=== PATIENT | female | born 1965 | race Caucasian/White ===

== ENCOUNTER 2019-04-18 16:53 | Emergency (ER) | payer BC, OTHER ==
--- NOTE | 2019-04-18 17:48 | EDPHYS ---
Physician Documentation [facility] Name: Lisa Valentino Age: 53 yrs Sex: Female : 1965 Arrival Date: 04/18/2019 Time: 16:59 Bed 8 Private MD: Fer Monsivais R ED Physician Dylan Mcleod HPI: 04/18 17:33 This 53 yrs old Female presents to ER via Ambulatory with complaints of Arm jmm Pain. 17:33 The patient or guardian complains of pain. Onset: The symptoms/episode began/occurred jmm acutely, 2 day(s) ago. Modifying factors: The symptoms are alleviated by nothing. the symptoms are aggravated by movement. Associated signs and symptoms: Pertinent negatives:. This is a 53 year old female with a history of htn, that presents to the ED with complaints of left and right extremity pain described as burning. Patient states she fall from a standing position 2 days ago and has since had burning pain which initially began radiating from the neck to the left arm and now the neck to the right arm. Patient denies weakness. Denies chest pain. 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 - Social history:: Smoking status: Patient uses tobacco products, smokes two packs cigarettes per day. - Ebola Screening: : Patient denies travel to an Ebola-affected area in the 21 days before illness onset. ROS: 17:33 Constitutional: Negative for fever, chills, and weight loss, Neck: Negative for injury, jmm pain, and swelling, Cardiovascular: Negative for chest pain, palpitations, and edema, Respiratory: Negative for shortness of breath, cough, wheezing, and pleuritic chest pain. 17:33 MS/extremity: Positive for pain. 17:33 All other systems are negative. Exam: 17:33 Constitutional: This is a well developed, well nourished patient who is awake, alert, jmm and in no acute distress. Head/Face: atraumatic. Eyes: EOMI, no conjunctival erythema appreciated ENT: Moist Mucus Membranes Neck: Trachea midline, Supple Chest/axilla: Normal chest wall appearance and motion. Cardiovascular: Regular rate and rhythm. No edema appreciated Respiratory: Normal respirations, no respiratory distress appreciated Abdomen/GI: Non distended, soft Back: Normal ROM Skin: General appearance color normal 17:33 Neck: C-spine: appears grossly normal, no vertebral tenderness, no crepitus. 17:33 Musculoskeletal/extremity: compartments are soft, full radial pulse, bilaterally, DTR normal, full fabric cutter strength, NVI. Normal finger jerk bilaterally. Vital Signs: 17:07 BP 134 / 92; Pulse 98; Resp 18; Temp 97.7; Pulse Ox 98% on R/A; Weight 80.74 kg; Height aj1 5 ft. 1 in. (154.94 cm) (R); Pain 3/10; 17:07 Body Mass Index 33.63 (80.74 kg, 154.94 cm) aj1 MDM: 17:16 Patient medically screened. [facility] 17:40 Data reviewed: vital signs, nurses notes. Counseling: I had a detailed discussion with [facility] the patient and/or guardian regarding: the historical points, exam findings, and any diagnostic results supporting the discharge/admit diagnosis, the need for outpatient follow up, to return to the emergency department if symptoms worsen or persist or if there are any questions or concerns that arise at home. ED course: No midline cervical tenderness. Symptoms appear consistent with cervical radiculopathy. PE findings do not indicate concern for an acute impingement syndrome. Patient advised to follow up with neuro and otherwise advised to return to the ED if symptoms worsen. Patient understood and agrees with the plan of care. . Administered Medications: No medications were administered Disposition: 18:33 Co-signature as Attending Physician, Dylan Mcleod MD. rn Disposition: 04/18/19 17:41 Discharged to Home. Impression: Radiculopathy, cervical region. - Condition is Stable. - Discharge Instructions: Cervical Radiculopathy. - Prescriptions for Ultracet 37.5- 325 mg Oral Tablet - take 1 tablet by ORAL route every 6 hours - for up to 5 days; do not exceed 8 tablets per day.; 12 tablet. Zanaflex 4 mg Oral Tablet - take 1 tablet by ORAL route every 8 hours As needed; 20 tablet. Medrol (Nakul) 4 mg Oral Tablets, Dose Pack - take 1 tablet by ORAL route as directed - follow package instructions; 1 packet. - Family Work Release, Medication Reconciliation Form, Thank You Letter, Antibiotic Education, Prescription Opioid Use form. - Follow up: Michael Zimmerman MD; When: 2 - 3 days; Reason: Recheck today's complaints, Continuance of care, Re-evaluation by your physician. 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 Impression: Radiculopathy, cervical region. sg Condition is Stable. Forms are Medication Reconciliation Form, Thank You Letter, Antibiotic Education, Prescription Opioid Use. Follow up: Michael Zimmerman; When: 2 - 3 days; Reason: Recheck today's complaints, Continuance of care, Re-evaluation by your physician. bro
--- NOTE | 2019-04-18 17:48 | ER ---
Nurse's Notes [facility] Name: Lisa Valentino Age: 53 yrs Sex: Female : 1965 Arrival Date: 04/18/2019 Time: 16:59 Bed 8 Private MD: Fer Monsivais R Diagnosis: Radiculopathy, cervical region Presentation: 04/18 17:03 Presenting complaint: Patient states: "I have spinal problems, bulging disks in 8 aj1 different places in my back. Night before last I tripped and felt. The next day i woke up and my left arm was feeling tingly and numb, now its both of my arms. I don't know if I have a pinched nerve or what is going on. The more I use my hands and arms the more it hurts" Patient ambulated to triage with a steady gait, speech is clear, face is symmetrical. Transition of care: patient was not received from another setting of care. Onset of symptoms was March 2019. Risk Assessment: Do you want to hurt yourself or someone else? Patient reports no desire to harm self or others. Initial Sepsis Screen: Does the patient meet any 2 criteria? No. Patient's initial sepsis screen is negative. Does the patient have a suspected source of infection? No. Patient's initial sepsis screen is negative. Care prior to arrival: None. 17:03 Method Of Arrival: Ambulatory aj1 17:03 Acuity: [place] 3 aj1 Triage Assessment: 17:07 General: Appears in no apparent distress. uncomfortable, Behavior is calm, cooperative, aj1 appropriate for age. Pain: Pain currently is 3 out of 10 on a pain scale. at worst was 9 out of 10 on a pain scale. Neuro: Level of Consciousness is awake, alert, obeys commands. Cardiovascular: Patient's skin is warm and dry. Respiratory: Airway is patent Respiratory effort is even, unlabored, Respiratory pattern is regular, symmetrical. 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 - Social history:: Smoking status: Patient uses tobacco products, smokes two packs cigarettes per day. - Ebola Screening: : Patient denies travel to an Ebola-affected area in the 21 days before illness onset. Screenin:45 Abuse screen: Denies threats or abuse. Denies injuries from another. Nutritional sg screening: No deficits noted. Tuberculosis screening: No symptoms or risk factors identified. Fall Risk None identified. Assessment: 17:30 General: Appears in no apparent distress. well groomed, well developed, well nourished, sg Behavior is calm, cooperative, appropriate for age. Pain: Complains of pain in right arm. 17:30 Neuro: Reports numbness in right arm and left arm. 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 Cardiovascular: Denies chest pain, diaphoresis, fatigue, lightheadedness, nausea, palpitations, shortness of breath, syncope, vomiting, Capillary refill is brisk in bilateral fingers Patient's skin is warm and dry. Chest pain is denied. Respiratory: Airway is patent Respiratory effort is even, unlabored, Respiratory pattern is regular, symmetrical. GI: Abdomen is round. : No signs and/or symptoms were reported regarding the genitourinary system. EENT: No signs and/or symptoms were reported regarding the EENT system. Derm: Skin is pink, warm \\T\\ dry. Musculoskeletal: Circulation, motion, and sensation intact. Range of motion: intact in all extremities, Swelling absent. Vital Signs: 17:07 BP 134 / 92; Pulse 98; Resp 18; Temp 97.7; Pulse Ox 98% on R/A; Weight 80.74 kg; Height aj1 5 ft. 1 in. (154.94 cm) (R); Pain 3/10; 17:07 Body Mass Index 33.63 (80.74 kg, 154.94 cm) aj1 ED Course: 16:59 Patient arrived in ED. mr 17:00 Fer Monsivais MD is Private Physician. mr 17:04 Triage completed. [facility] 17:07 Arm band placed on Patient placed in an exam room. [facility] 17:16 Gavin Olea PA is PHCP. [facility] 17:16 Dylan Mcleod MD is Attending Physician. [facility] 17:30 Patient has correct armband on for positive identification. Bed in low position. Call sg light in reach. Side rails up X2. Pulse ox on. NIBP on. Head of bed elevated. 17:41 Michael Zimmerman MD is Referral Physician. [facility] 17:45 No provider procedures requiring assistance completed. Patient did not have IV access sg during this emergency room visit. Administered Medications: No medications were administered Outcome: 17:41 Discharge ordered by . [facility] 17:45 Discharged to home ambulatory, with family. 17:45 Condition: good 17:45 Discharge instructions given to patient, Instructed on discharge instructions, follow up and referral plans. safety practices, Demonstrated understanding of instructions, follow-up care, medications, Prescriptions given X 3. 17:50 Patient left the ED. Signatures: Radha Heath, RN RN aj Ben Bowser RN RN Gavin Olea PA PA jmm Rivera, Mary mr
[2019-04-18 18:38] VITALS: BP 134/92; TEMP 97.7; O2SAT 98
== END 2019-04-18 17:50 | disposition home or self-care (01) ==
LOC: ER 16:53
DX: M54.12 Radiculopathy, cervical region (principal); I10 Essential (primary) hypertension; K21.9 Gastro-esophageal reflux disease without esophagitis; E78.5 Hyperlipidemia, unspecified; F41.8 Other specified anxiety disorders; F17.210 Nicotine dependence, cigarettes, uncomplicated; Z88.3 Allergy status to other anti-infective agents; Z88.6 Allergy status to analgesic agent; Z91.040 Latex allergy status
CPT/HCPCS: 99283

== ENCOUNTER 2019-10-22 16:30 | Emergency (ER) | payer BC, OTHER ==
[2019-10-22 18:06] LABS: Absolute Lymphocytes (CBC) 2.5 K/uL (0.7-4.9); Basophils % 1.1 % (0-1.3); Hematocrit 43.5 % (36.0-45.0); Lymphocytes % 30.4 % (15.3-44.8); MPV 9.7 fL (7.6-11.3); RBC Red Blood Cell Count 5.15 M/uL (3.86-4.86)
--- NOTE | 2019-10-22 18:09 | RAD REPORT ---
EXAM DESCRIPTION: Richa Single View10/22/2019 5:50 pm CLINICAL HISTORY: Chest pain COMPARISON: 2014 FINDINGS: The lungs appear clear of acute infiltrate. The heart is normal size IMPRESSION: No acute abnormalities displayed
[2019-10-22 19:23] LABS: ALT/SGPT 40 U/L (12-78); Albumin 3.6 g/dL (3.4-5.0); Alkaline Phosphatase 104 U/L (45-117); BUN Blood Urea Nitrogen 12 mg/dL (7-18); Bicarbonate 29 mmol/L (21-32); Bilirubin Direct < 0.1 mg/dL (0-0.2); Bilirubin Total 0.4 mg/dL (0.2-1.0); Glucose Level 98 mg/dL (74-106); Protein, Total 7.9 g/dL (6.4-8.2); Sodium Level 139 mmol/L (136-145); Troponin (Emerg Dept Use Only) < 0.02 ng/mL (0.0-0.045)
[2019-10-22 19:32] LABS: AST/SGOT 26 U/L (15-37); Potassium 3.5 mmol/L (3.5-5.1)
--- NOTE | 2019-10-22 19:53 | ER ---
Nurse's Notes [facility] Name: Lisa Valentino Age: 54 yrs Sex: Female : 1965 Arrival Date: 10/22/2019 Time: 16:33 Bed 24 Private MD: Diagnosis: Other chest pain Presentation: 10/21 16:35 Acuity: [place] 3 aa5 16:35 Chief complaint: Patient states: cough, SOB, and chest pain that began 2-3 days ago. Pt aa5 also reports fever up to 101.0F. Coronavirus screen: Patient reports a cough. Patient reports shortness of breath or difficulty breathing. Patient reports a measured and/or subjective temperature greater than 100.4F. Patient denies travel on a cruise ship or to a country the [facility] currently lists as an affected area. Patient denies contact with known and/or suspected case of COVID-19. Ebola Screen: Patient negative for fever greater than or equal to 101.5 degrees Fahrenheit, and additional compatible Ebola Virus Disease symptoms. Initial Sepsis Screen: Does the patient meet any 2 criteria? HR > 90 bpm. Does the patient have a suspected source of infection? Yes: Other: cough. Risk Assessment: Do you want to hurt yourself or someone else? Patient reports no desire to harm self or others. 16:35 Method Of Arrival: Ambulatory aa5 17:43 Onset of symptoms was October 19, 2019. ll1 Triage Assessment: 17:36 General: Appears in no apparent distress. Behavior is calm, cooperative. Pain: ll1 Complains of pain in chest Quality of pain is described as pressure, Pain began 2-3 days ago. Is continuous. Neuro: No deficits noted. Cardiovascular: Heart tones S1 S2 Capillary refill < 3 seconds Clubbing of nail beds is absent JVD is absent Pulses are all present. Chest pain is described as mild, quality is pressure, is located in substernal area began 3 days ago. Respiratory: Reports cough that is non-productive, Airway is patent Trachea midline Respiratory effort is even, unlabored, Respiratory pattern is regular, symmetrical, Breath sounds are clear bilaterally. the patient has mild shortness of breath. GI: No deficits noted. 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 - Social history:: Smoking status: Patient reports the use of cigarette tobacco products, smokes one pack cigarettes per day. - Family history:: not pertinent, No immediate family members are acutely ill. Screenin:35 Abuse screen: Denies threats or abuse. Nutritional screening: No deficits noted. ll1 Tuberculosis screening: No symptoms or risk factors identified. Fall Risk IV access (20 points). Total Reinoso Fall Scale indicates No Risk (0-24 pts). Assessment: 17:41 General: Appears in no apparent distress. Behavior is calm, cooperative. Pain: ll1 Complains of pain in chest Pain does not radiate. Quality of pain is described as pressure, Pain began 2-3 days ago. Is continuous. Neuro: No deficits noted. Cardiovascular: Reports chest pain, Heart tones S1 S2 Capillary refill < 3 seconds Clubbing of nail beds is absent JVD is absent Patient's skin is warm and dry. Rhythm is sinus tachycardia. Respiratory: Reports cough that is non-productive. Respiratory: Airway is patent Trachea midline Respiratory effort is even, unlabored, Respiratory pattern is regular, symmetrical, Breath sounds are clear bilaterally. the patient has mild shortness of breath. GI: No deficits noted. 18:37 Reassessment: No changes from previously documented assessment. Patient and/or family ll1 updated on plan of care and expected duration. Pain level reassessed. Patient is alert, oriented x 3, equal unlabored respirations, skin warm/dry/pink. 10/22 08:33 Reassessment: NDAINE [id number]. Vital Signs: 10/21 16:35 BP 132 / 81; Pulse 116; Resp 20 S; Temp 99.7(O); Pulse Ox 98% on R/A; Weight 90.72 kg aa5 (R); Height 5 ft. 1 in. (154.94 cm) (R); Pain 6/10; 17:40 BP 130 / 80; Pulse 101; Resp 19; Pulse Ox 97% on R/A; ll1 18:23 BP 130 / 90; Pulse 92; Resp 18; Pulse Ox 97% on R/A; ll1 18:51 Pulse 87; Resp 20; Pulse Ox 96% on R/A; ll1 19:23 BP 122 / 77; Pulse 79; Resp 19; Pulse Ox 97% on R/A; ll1 20:06 BP 122 / 77; Pulse 87; Resp 18; Pulse Ox 97% ; Pain 0/10; ll1 16:35 Body Mass Index 37.79 (90.72 kg, 154.94 cm) aa5 Vitals: 17:40 Cardiac Rhythm Assessment Sinus tach. ll1 18:51 Cardiac Rhythm Assessment Regular. ll1 19:23 Cardiac Rhythm Assessment Regular. ll1 ED Course: 15:20 Flu and/or RSV swab sent to lab. ll1 16:33 Patient arrived in ED. aa5 16:41 Arm band placed on. aa5 16:44 Triage completed. aa5 16:44 Dejah Watson, ABRIL is Primary Nurse. ll1 16:48 Volodymyr Haines DO is Attending Physician. ms3 17:15 Inserted saline lock: 20 gauge in left antecubital area, using aseptic technique. Blood ll1 collected. 17:36 Patient has correct armband on for positive identification. Bed in low position. Call ll1 light in reach. Side rails up X 1. equipment monitor phototypesetting on. Pulse ox on. NIBP on. 17:43 No provider procedures requiring assistance completed. Patient maintains SpO2 ll1 saturation greater than 95% on room air. 17:50 XRAY Chest (1 view) In Process Unspecified. EDMS 18:47 Lab(s) recollected, by me, sent to lab. ll1 19:51 Attending Physician role handed off by Volodymyr Haines DO tw4 19:51 Wong Gonzalez MD is Attending Physician. tw4 20:08 IV discontinued, intact, bleeding controlled, No redness/swelling at site. Pressure ll1 dressing applied. Administered Medications: No medications were administered Outcome: 19:52 Discharge ordered by . tw4 20:08 Discharged to home ambulatory. ll1 20:08 Condition: good 20:08 Discharge instructions given to patient, Instructed on discharge instructions, follow up and referral plans. Demonstrated understanding of instructions, follow-up care. 20:08 Patient left the ED. ll1 Addendum: 10/24/2019 20:00 Addendum: Other Pt notified of negative COVID-19 swab results. Pt advised to continue d m5 to monitor symptoms, to remain in isolation until fever free for 72 hours and to return if symptoms worsen. Signatures: Dispatcher [employer] Pamela Salazar RN RN dm5 Pretty Damon RN RN aa5 Kristin Ramsey RN RN ss Wong Gonzalez MD MD tw4 Dejah Watson RN RN ll1 Volodymyr Haines DO DO ms3
--- NOTE | 2019-10-22 19:53 | EDPHYS ---
Physician Documentation [facility] Name: Lisa Valentino Age: 54 yrs Sex: Female : 1965 Arrival Date: 10/22/2019 Time: 16:33 Bed 24 Private MD: ED Physician Wong Gonzalez HPI: 10/21 17:20 This 54 yrs old Female presents to ER via Ambulatory with complaints of Chest ms3 Pain, Cough, Fever. 17:20 The patient or guardian reports chest pain that is located primarily in the substernal ms3 area. Onset: gradually. The pain does not radiate. Associated signs and symptoms: The patient has no apparent associated signs or symptoms, Pertinent negatives: abdominal pain, nausea. The chest pain is described as a pressure. Duration: The patient or guardian reports a single episode. Modifying factors: The symptoms are alleviated by nothing. the symptoms are aggravated by nothing. Severity of pain: in the emergency department the pain is unchanged. 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 - Social history:: Smoking status: Patient reports the use of cigarette tobacco products, smokes one pack cigarettes per day. - Family history:: not pertinent, No immediate family members are acutely ill. ROS: 17:20 Constitutional: Negative for fever, and chills. Eyes: Negative for injury, pain, ms3 redness, and discharge, Neck: Negative for injury, pain, and swelling. 17:20 Constitutional: Positive for fever. 17:20 Respiratory: Positive for cough, shortness of breath. 17:20 All other systems are negative. Exam: 17:20 Constitutional: This is a well developed, well nourished patient who is awake, alert, ms3 and in no acute distress. Head/Face: Normocephalic, atraumatic. Chest/axilla: Normal chest wall appearance and motion. Nontender with no deformity. Cardiovascular: Regular rate and rhythm with a normal S1 and S2. No gallops, murmurs, or rubs. Normal PMI, no JVD. No pulse deficits. Respiratory: Lungs have equal breath sounds bilaterally, clear to auscultation and percussion. No rales, rhonchi or wheezes noted. No increased work of breathing, no retractions or nasal flaring. Abdomen/GI: Soft, non-tender, with normal bowel sounds. No distension or tympany. No guarding or rebound. No evidence of tenderness throughout. Skin: Warm, dry with normal turgor. Normal color with no rashes, no lesions, and no evidence of cellulitis. MS/ Extremity: Pulses equal, no cyanosis. Neurovascular intact. Full, normal range of motion. Neuro: Awake and alert, GCS 15, oriented to person, place, time, and situation. Cranial nerves II-XII grossly intact. Motor strength 5/5 in all extremities. Sensory grossly intact. Cerebellar exam normal. Normal gait. 18:29 ECG was reviewed by the Attending Physician. ms3 Vital Signs: 16:35 BP 132 / 81; Pulse 116; Resp 20 S; Temp 99.7(O); Pulse Ox 98% on R/A; Weight 90.72 kg aa5 (R); Height 5 ft. 1 in. (154.94 cm) (R); Pain 6/10; 17:40 BP 130 / 80; Pulse 101; Resp 19; Pulse Ox 97% on R/A; ll1 18:23 BP 130 / 90; Pulse 92; Resp 18; Pulse Ox 97% on R/A; ll1 18:51 Pulse 87; Resp 20; Pulse Ox 96% on R/A; ll1 19:23 BP 122 / 77; Pulse 79; Resp 19; Pulse Ox 97% on R/A; ll1 20:06 BP 122 / 77; Pulse 87; Resp 18; Pulse Ox 97% ; Pain 0/10; ll1 16:35 Body Mass Index 37.79 (90.72 kg, 154.94 cm) aa5 MDM: 16:48 Patient medically screened. ms3 18:30 Differential diagnosis: abnormal EKG, acute myocardial infarction, gastroesophageal ms3 reflux disease (GERD), pneumonia, COVID. 18:32 Data interpreted: Pulse oximetry: Interpretation: normal. Test interpretation: by ED ms3 physician or midlevel provider: ECG, plain radiologic studies. Counseling: I had a detailed discussion with the patient and/or guardian regarding: the historical points, exam findings, and any diagnostic results supporting the discharge/admit diagnosis, the presence of at least one elevated blood pressure reading (>120/80) during this emergency department visit, lab results, radiology results. 19:07 Data reviewed: vital signs, nurses notes, lab test result(s), CBC. Transition of care: ms3 After a detail discussion of the patient's case, care is transferred to Wong Gonzalez MD. 10/21 17:07 Order name: Basic Metabolic Panel; Complete Time: 19:46 ms3 10/21 17:07 Order name: CBC with Diff; Complete Time: 18:13 ms3 10/21 17:07 Order name: LFT's; Complete Time: 19:46 ms3 10/21 17:07 Order name: Troponin (emerg Dept Use Only); Complete Time: 19:46 ms3 10/21 17:07 Order name: Flu; Complete Time: 18:13 ms3 10/21 17:51 Order name: COVID-19; Complete Time: 19:46 ms3 10/21 17:07 Order name: XRAY Chest (1 view); Complete Time: 18:13 ms3 10/21 17:07 Order name: EKG; Complete Time: 17:08 ms3 10/21 17:07 Order name: Cardiac monitoring; Complete Time: 17:44 ms3 10/21 17:07 Order name: EKG - Nurse/Tech; Complete Time: 18:23 ms3 10/21 17:07 Order name: IV Saline Lock; Complete Time: 17:17 ms3 10/21 17:07 Order name: Labs collected and sent; Complete Time: 17:17 ms3 10/21 17:07 Order name: O2 Per Protocol; Complete Time: 17:17 ms3 10/21 17:07 Order name: O2 Sat Monitoring; Complete Time: 17:17 ms3 EC:20 Rate is 97 beats/min. Rhythm is regular. QRS [place] is Normal. IN interval is normal. QRS ms3 interval is normal. QT interval is normal. Clinical impression: NSR w/ Non-specific ST/T Changes. Administered Medications: No medications were administered Disposition: 10/22/19 19:52 Discharged to Home. Impression: Other chest pain. - Condition is Stable. - Discharge Instructions: Nonspecific Chest Pain. - Medication Reconciliation Form, Thank You Letter, Antibiotic Education, Prescription Opioid Use form. - Follow up: Private Physician; When: Upon discharge from the Emergency Department; Reason: Recheck today's complaints, Continuance of care, Re-evaluation by your physician. - Problem is new. - Symptoms have improved. Signatures: Dispatcher [employer] EDMS Gavin Olea PA PA jmm Calderon, Audri, RN RN aa5 Wong Gonzalez MD MD tw4 Dejah Watson RN RN ll1 Volodymyr Haines, DO ms3 Corrections: (The following items were deleted from the chart) 18:30 18:27 ECG was reviewed by the Attending Physician. ms3 ms3 18:30 18:27 Rate is 97 beats/min. Rhythm is regular. QRS [place] is Normal. IN interval is ms3 normal. QRS interval is normal. QT interval is normal. ms3 20:08 19:52 10/22/2019 19:52 Discharged to Home. Impression: Other chest pain. Condition is ll1 Stable. Forms are Medication Reconciliation Form, Thank You Letter, Antibiotic Education, Prescription Opioid Use. Follow up: Private Physician; When: Upon discharge from the Emergency Department; Reason: Recheck today's complaints, Continuance of care, Re-evaluation by your physician. Problem is new. Symptoms have improved. tw4
[2019-10-22 20:20] VITALS: TEMP 99.7
[2019-10-22 20:35] VITALS: BP 122/77; O2SAT 97
--- NOTE | 2019-10-23 11:02 | EKG ---
Test Date: 2019-10-22 Test Time: 18:02:18 Mushroom Picker: ELVIS MEASUREMENT RESULTS: Intervals: Rate: 97 HI: 150 QRSD: 86 QT: 360 QTc: 457 Viola: P: 13 HI: 150 QRS: 52 T: 11 INTERPRETIVE STATEMENTS: Normal sinus rhythm T wave abnormality, consider inferior ischemia Abnormal ECG No previous ECG available for comparison Electronically Signed On 10-23-19 11:01:05 CDT by Lon Maldonado
== END 2019-10-22 20:08 | disposition home or self-care (01) ==
LOC: ER 16:30
DX: R07.89 Other chest pain (principal); Z03.818 Encounter for observation for suspected exposure to other biological agents ruled out; R05 Cough; I10 Essential (primary) hypertension; F17.210 Nicotine dependence, cigarettes, uncomplicated; Z88.1 Allergy status to other antibiotic agents; Z88.8 Allergy status to other drugs, medicaments and biological substances; Z91.012 Allergy to eggs; Z91.040 Latex allergy status
CPT/HCPCS: 93005; 85025; 80048; 36415; 80076; 84484; 87804 ×2; 71045; 99285; U0001

== ENCOUNTER 2020-06-27 16:20 | Emergency (ER) | payer BC ==
--- NOTE | 2020-06-27 18:49 | RAD REPORT ---
EXAM DESCRIPTION: CT - CTHCSPWOC - 06/27/2020 6:00 pm CLINICAL HISTORY: Trauma, head and neck injury. fall;Pain COMPARISON: No comparisons TECHNIQUE: Axial 5 mm thick images of the head were obtained. Axial 2 mm thick images of the cervical spine were obtained with sagittal and coronal reconstruction images generated and reviewed. All CT scans are performed using dose optimization technique as appropriate and may include automated exposure control or mA/KV adjustment according to patient size. FINDINGS: CT HEAD WITHOUT CONTRAST: No acute hemorrhage, hydrocephalus or extra-axial collection is identified.No areas of brain edema or midline shift. The paranasal sinuses and mastoids are clear.The calvarium is intact. CT CERVICAL SPINE WITHOUT CONTRAST: No fracture or subluxation.Multilevel mild spondylosis of the cervical spine is present involving the mid and lower levels.No prevertebral soft tissues swelling is identified. A few mildly prominent fabi ateral nodes are seen throughout the neck. IMPRESSION: No acute intracranial or cervical spine findings.
[2020-06-27] MEDS ORDERED: HYDROCODONE/APAP 7.5/325 MG TAB ONE (19:32)
--- NOTE | 2020-06-27 20:27 | RAD REPORT ---
EXAM DESCRIPTION: CT - Thoracic Spine W/o Cont - 06/27/2020 7:52 pm CLINICAL HISTORY: Radiculopathy. fall;Pain COMPARISON: Head C Spine Mpr Wo Con dated 06/27/2020; CTANGIO CHEST FOR PE dated 06/17/2014 TECHNIQUE: Axial CT imaging through the thoracic spine was performed with coronal and sagittal re-fo rmatted images. All CT scans are performed using dose optimization technique as appropriate and may include automated exposure control or mA/KV adjustment according to patient size. FINDINGS: Vertebral body heights and disc spaces are maintained. A compression fracture is not prese nt. Mild spondylosis midthoracic spine with disc thinning. Thoracic spine alignment is within normal limits. No paraspinal masses or hematoma. Calcified nodule is seen in the right lung with calcified hilar lymph nodes. This may indicate prior granulomatous infection. IMPRESSION: No acute thoracic spine abnormality.
--- NOTE | 2020-06-27 20:29 | RAD REPORT ---
EXAM DESCRIPTION: RAD - Ankle Right 3 View - 06/27/2020 7:28 pm CLINICAL HISTORY: PAIN COMPARISON: No comparisons FINDINGS: Mild soft tissue swelling is seen adjacent to the lateral malleolus. No acute fracture or dislocation. Small posterior and plantar calcaneal spurs.
--- NOTE | 2020-06-27 20:45 | ER ---
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 My head is hurting, my neck is hurting, back is hurting, R ankle hurting. Denies LOC. Denies N/V. Not on blood thinners. Coronavirus screen: Client denies travel out of the [place] in the last 14 days. At this time, the client does not indicate any symptoms associated with coronavirus-19. Ebola Screen: Patient negative for fever greater than or equal to 101.5 degrees Fahrenheit, and additional compatible Ebola Virus Disease symptoms Patient denies exposure to infectious person. Patient denies travel to an Ebola-affected area in the 21 days before illness onset. No symptoms or risks identified at this time. Initial Sepsis Screen: Does the patient meet any 2 criteria? No. Patient's initial sepsis screen is negative. Does the patient have a suspected source of infection? No. Patient's initial sepsis screen is negative. Risk Assessment: Do you want to hurt yourself or someone else? Patient reports no desire to harm self or others. Onset of symptoms was June 27, 2020. 16:53 Method Of Arrival: Ambulatory ca1 16:53 Acuity: [place] 4 ca1 19:17 Care prior to arrival: None. Mechanism of Injury: Fall Inversion table. Trauma event ph details: Injury occurred in the [facility], Injury occurred: in a public building. 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 - Social history:: Smoking status: Patient reports the use of cigarette tobacco products, smokes two packs cigarettes per day. - Immunization history: Last tetanus immunization: unknown. Screenin:17 Abuse screen: Denies threats or abuse. Denies injuries from another. Nutritional ph screening: No deficits noted. Tuberculosis screening: No symptoms or risk factors identified. Fall Risk None identified. Primary Survey: 19:15 NO uncontrolled hemorrhage observed. A: A: The patient is alert. Breathing/Chest: ph Respiratory pattern: regular, Respiratory effort: spontaneous, unlabored. Circulation: Skin color: pink, Skin temperature: warm, dry. Disability Alert. Exposure/Environment: A warming method has been applied: A warm blanket has been provided to the patient. 20:00 Reassessment Airway Airway Patent Breathing/Chest Respiratory pattern Regular wh Respiratory effort Spontaneous Unlabored Disability Alert. Secondary Survey: 19:16 HEENT: Head Other swelling to top of head. Musculoskeletal: Circulation, motion, and ph sensation intact. Injury Description: Abrasion sustained to right ankle. Assessment: 19:14 General: Appears in no apparent distress. uncomfortable, well groomed, Behavior is ph calm, cooperative, appropriate for age. Pain: Complains of pain in head, neck, and R ankle. Neuro: Level of Consciousness is awake, alert, obeys commands, Oriented to person, place, time, situation, Reports dizziness, headache. Cardiovascular: Capillary refill < 3 seconds in bilateral fingers Patient's skin is warm and dry. Respiratory: Airway is patent Respiratory effort is even, unlabored, Respiratory pattern is regular, symmetrical. GI: No signs and/or symptoms were reported involving the gastrointestinal system. Derm: Skin is healthy with good turgor, Skin is pink, warm \T\ dry. Musculoskeletal: Circulation, motion, and sensation intact. Range of motion: intact in all extremities. Injury Description: Abrasion sustained to right ankle. 19:15 Reassessment: Patient appears in no apparent distress at this time. Patient and/or wh family updated on plan of care and expected duration. Pain level reassessed. Patient is alert, oriented x 3, equal unlabored respirations, skin warm/dry/pink. 20:00 Reassessment: Patient appears in no apparent distress at this time. Patient and/or wh family updated on plan of care and expected duration. Pain level reassessed. Patient is alert, oriented x 3, equal unlabored respirations, skin warm/dry/pink. 21:00 Reassessment: Patient appears in no apparent distress at this time. Patient and/or wh family updated on plan of care and expected duration. Pain level reassessed. Patient is alert, oriented x 3, equal unlabored respirations, skin warm/dry/pink. Patient states feeling better. Patient states symptoms have improved. Vital Signs: 16:53 BP 128 / 90; Pulse 89; Resp 15 S; Temp 97.7(TE); Pulse Ox 100% on R/A; Weight 96.16 kg ca1 (R); Height 5 ft. 1 in. (154.94 cm) (R); Pain 9/10; 19:30 BP 112 / 74; Pulse 74; Resp 18; Pulse Ox 100% on R/A; wh 21:00 BP 118 / 65; Pulse 71; Resp 18; Pulse Ox 98% on R/A; wh 16:53 Body Mass Index 40.06 (96.16 kg, 154.94 cm) ca1 Clayton Coma Score: 18:40 Eye Response: spontaneous(4). Verbal Response: oriented(5). Motor Response: obeys cp commands(6). Total: 15. 19:16 Eye Response: spontaneous(4). Verbal Response: oriented(5). Motor Response: obeys ph commands(6). Total: 15. Trauma Score (Adult): 19:16 Eye Response: spontaneous(1); Verbal Response: oriented(1); Motor Response: obeys ph commands(2); Systolic BP: > 89 mm Hg(4); Respiratory Rate: 10 to 29 per min(4); Clayton Score: 15; Trauma Score: 12 ED Course: 16:22 Patient arrived in ED. as 16:59 Triage completed. ca1 17:00 Arm band placed on. C-collar applied. ca1 18:06 CT Head C Spine In Process Unspecified. EDMS 18:33 Ziggy Dickinson PA is PHCP. cp 18:33 Dylan Mcleod MD is Attending Physician. cp 19:12 Conrad Kuo is Primary Nurse. wh 19:15 Patient maintains SpO2 saturation greater than 95% on room air. Thermoregulation: warm wh blanket given to patient. 19:17 Patient has correct armband on for positive identification. Bed in low position. Call ph light in reach. Side rails up X 1. Door closed. Noise minimized. 19:28 XRAY Ankle RIGHT 3 view In Process Unspecified. EDMS 19:52 CT Thoracic Spine Wo Cont In Process Unspecified. EDMS 21:13 No provider procedures requiring assistance completed. Patient did not have IV access during this emergency room visit. 21:14 Applied air cast splint in the right foot. oe Administered Medications: 19:23 Drug: Hydrocodone-Acetaminophen (7.5 mg-325 mg) 1 tabs {Note: RASS 0.} Route: PO; 20:44 Follow up: Response: No adverse reaction; Pain is decreased; RASS: Alert and Calm (0) 20:57 Drug: Flexeril 10 mg Route: PO; 21:09 Follow up: Response: No adverse reaction 20:58 Drug: TORadol 60 mg Route: IM; Site: right gluteus; 21:09 Follow up: Response: No adverse reaction; Pain is decreased Intake: 21:15 PO: 120ml (Water); Total: 120ml. Outcome: 20:44 Discharge ordered by MD. 21:14 Discharged to home ambulatory, with family. 21:14 Condition: stable 21:14 Discharge instructions given to patient, family, Instructed on discharge instructions, follow up and referral plans. no drinking with medication, no driving heavy equipment, medication usage, POC Demonstrated understanding of instructions, follow-up care, medications, splint care, POC Prescriptions given X 3. 21:16 Patient's length of stay was extended due to staffing issues within the emergency department. 21:18 Patient left the ED. Signatures: Dispatcher [employer] EDMS Annelise Ambrocio Patricia, RN RN ph Teena, Ziggy, PA PA Tera Guthrie Winsy Enma Mclaughlin RN RN ca1
--- NOTE | 2020-06-27 20:45 | EDPHYS ---
Physician Documentation [facility] Name: Lisa Valentino Age: 54 yrs Sex: Female : 1965 Arrival Date: 06/27/2020 Time: 16:22 Bed 5 Private MD: ED Physician Dylan Mcleod HPI: 06/27 18:40 This 54 yrs old Female presents to ER via Ambulatory with complaints of Head cp Injury Without LOC-Adult, Dizziness, Neck and Upper Back Pain. 18:40 The patient or guardian reports pain. The complaints affect the top of head. Context of cp injury: resulted from a fall, while suspended from inversion table. Onset: The symptoms/episode began/occurred today. Associated signs and symptoms: Pertinent positives: headache, neck pain, back pain and right ankle pain. 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 - Social history:: Smoking status: Patient reports the use of cigarette tobacco products, smokes two packs cigarettes per day. - Immunization history: Last tetanus immunization: unknown. ROS: 18:45 Constitutional: Negative for body aches, chills, fever, poor PO intake. cp 18:45 Eyes: Negative for injury, pain, redness, and discharge. cp 18:45 ENT: Negative for ear pain, sore throat, difficulty swallowing, difficulty handling secretions. 18:45 Neck: Positive for pain with movement, pain at rest. 18:45 Cardiovascular: Negative for chest pain, palpitations. 18:45 Respiratory: Negative for cough, shortness of breath, wheezing. 18:45 Abdomen/GI: Negative for abdominal pain, nausea, vomiting, and diarrhea. 18:45 Back: Positive for pain at rest, pain with movement, of the left subscapular area and thoracic area. 18:45 MS/extremity: Positive for pain, swelling, tenderness, of the right ankle. 18:45 Neuro: Positive for headache, Negative for altered mental status, loss of consciousness, syncope, weakness. 18:45 All other systems are negative. Exam: 18:50 Head/Face: Normocephalic, atraumatic. cp 18:50 Constitutional: The patient appears in no acute distress, alert, awake, non-toxic, well developed, well nourished. 18:50 Eyes: Periorbital structures: appear normal, Pupils: equal, round, and reactive to light and accomodation, Extraocular movements: intact throughout, Lids and lashes: appear normal, bilaterally. 18:50 ENT: External ear(s): are unremarkable, Nose: is normal, Posterior pharynx: Airway: no evidence of obstruction, patent. 18:50 Neck: C-spine: C-collar placed in ED. 18:50 Chest/axilla: Inspection: normal, Palpation: is normal, no crepitus, no tenderness. 18:50 Cardiovascular: Rate: normal, Rhythm: regular. 18:50 Respiratory: the patient does not display signs of respiratory distress, Respirations: normal, no use of accessory muscles, no retractions, labored breathing, is not present, Breath sounds: are clear throughout, no decreased breath sounds. 18:50 Abdomen/GI: Exam negative for discomfort, distension, guarding, Inspection: abdomen appears normal. 18:50 Back: pain, that is moderate, of the left subscapular area and thoracic area, ROM is painful, with all movement, vertebral tenderness, is appreciated at T2 and T3. 18:50 Musculoskeletal/extremity: Joints: All joints are normal except the right ankle displays painful range of motion, swelling, tenderness. 18:50 Neuro: Orientation: to person, place \T\ time. Mentation: is normal, Motor: moves all fours, strength is normal, Sensation: no obvious gross deficits. Vital Signs: 16:53 BP 128 / 90; Pulse 89; Resp 15 S; Temp 97.7(TE); Pulse Ox 100% on R/A; Weight 96.16 kg ca1 (R); Height 5 ft. 1 in. (154.94 cm) (R); Pain 9/10; 19:30 BP 112 / 74; Pulse 74; Resp 18; Pulse Ox 100% on R/A; wh 21:00 BP 118 / 65; Pulse 71; Resp 18; Pulse Ox 98% on R/A; 16:53 Body Mass Index 40.06 (96.16 kg, 154.94 cm) ca1 Justyn Coma Score: 18:40 Eye Response: spontaneous(4). Verbal Response: oriented(5). Motor Response: obeys cp commands(6). Total: 15. 19:16 Eye Response: spontaneous(4). Verbal Response: oriented(5). Motor Response: obeys ph commands(6). Total: 15. Trauma Score (Adult): 19:16 Eye Response: spontaneous(1); Verbal Response: oriented(1); Motor Response: obeys ph commands(2); Systolic BP: > 89 mm Hg(4); Respiratory Rate: 10 to 29 per min(4); [place] Score: 15; Trauma Score: 12 MDM: 18:37 Patient medically screened. cp 20:00 Differential diagnosis: Contusion of Hematoma on Intracranial bleed- Concussion cp cerebral contusion, spinal fracture. 20:43 Data reviewed: vital signs, nurses notes, radiologic studies, CT scan, plain films, and cp as a result, I will discharge patient. 20:44 Counseling: I had a detailed discussion with the patient and/or guardian regarding: the cp historical points, exam findings, and any diagnostic results supporting the discharge/admit diagnosis, radiology results, to return to the emergency department if symptoms worsen or persist or if there are any questions or concerns that arise at home. 20:44 Response to treatment: the patient's symptoms have markedly improved after treatment, cp and as a result, I will discharge patient. 06/27 17:01 Order name: CT Head C Spine; Complete Time: 18:51 ca1 06/27 18:53 Order name: XRAY Ankle RIGHT 3 view; Complete Time: 20:37 cp 06/27 18:53 Order name: CT Thoracic Spine Wo Cont; Complete Time: 20:37 cp 06/27 20:38 Order name: Ankle Splint: Aircast; Complete Time: 21:09 cp Administered Medications: 19:23 Drug: Hydrocodone-Acetaminophen (7.5 mg-325 mg) 1 tabs {Note: RASS 0.} Route: PO; 20:44 Follow up: Response: No adverse reaction; Pain is decreased; RASS: Alert and Calm (0) 20:57 Drug: Flexeril 10 mg Route: PO; 21:09 Follow up: Response: No adverse reaction 20:58 Drug: TORadol 60 mg Route: IM; Site: right gluteus; 21:09 Follow up: Response: No adverse reaction; Pain is decreased Disposition: 06/28 09:34 Co-signature as Attending Physician, Dylan Mcleod MD. rn Disposition: 06/27/20 20:44 Discharged to Home. Impression: Cervicalgia - from fall, Dorsalgia - from fall, Headache - from fall, Sprain of ankle - right. - Condition is Stable. - Discharge Instructions: Ankle Sprain, Back Pain, Adult, General Headache Without Cause, Musculoskeletal Pain. - Prescriptions for Cyclobenzaprine 10 mg Oral Tablet - take 1 tablet by ORAL route every 8 hours As needed; 20 tablet. Diclofenac Sodium 75 mg Oral Tablet Sustained Release - take 1 tablet by ORAL route 2 times per day; 30 tablet. Tramadol 50 mg Oral Tablet - take 1 tablet by ORAL route every 8 hours as needed; 12 tablet. - Medication Reconciliation Form, Thank You Letter, Antibiotic Education, Prescription Opioid Use form. - Follow up: Private Physician; When: 2 - 3 days; Reason: Recheck today's complaints. - Problem is new. - Symptoms have improved. Signatures: Dispatcher [employer] EDDylan Knott MD MD rn Page, Corey, PA PA cp Habalo, Winsy Enma Mclaughlin RN RN ca1 Corrections: (The following items were deleted from the chart) 06/27 20:45 20:44 06/27/2020 20:44 Discharged to Home. Impression: Cervicalgia - from fall; cp Dorsalgia - from fall; Headache - from fall. Condition is Stable. Forms are Medication Reconciliation Form, Thank You Letter, Antibiotic Education, Prescription Opioid Use. Follow up: Private Physician; When: 2 - 3 days; Reason: Recheck today's complaints. Problem is new. Symptoms have improved. cp 21:18 20:45 06/27/2020 20:44 Discharged to Home. Impression: Cervicalgia - from fall; wh Dorsalgia - from fall; Headache - from fall; Sprain of ankle - right. Condition is Stable. Discharge Instructions: Back Pain, Adult, General Headache Without Cause, Musculoskeletal Pain, Ankle Sprain. Prescriptions for Cyclobenzaprine 10 mg Oral Tablet - take 1 tablet by ORAL route every 8 hours As needed; 20 tablet, Diclofenac Sodium 75 mg Oral Tablet Sustained Release - take 1 tablet by ORAL route 2 times per day; 30 tablet. and Forms are Medication Reconciliation Form, Thank You Letter, Antibiotic Education, Prescription Opioid Use. Follow up: Private Physician; When: 2 - 3 days; Reason: Recheck today's complaints. Problem is new. Symptoms have improved. cp
[2020-06-27] MEDS ORDERED: KETOROLAC 30 MG/ML INJ ONE (21:05)
[2020-06-27] MEDS ORDERED: CYCLOBENZAPRINE 10 MG TAB ONE (21:05)
[2020-07-01 14:41] VITALS: TEMP 97.7
[2020-07-01 14:43] VITALS: BP 118/65; O2SAT 98
== END 2020-06-27 21:18 | disposition home or self-care (01) ==
LOC: ER 16:20
DX: S93.401A Sprain of unspecified ligament of right ankle, initial encounter (principal); M54.2 Cervicalgia; M54.9 Dorsalgia, unspecified; W17.89XA Other fall from one level to another, initial encounter; Y93.9 Activity, unspecified; Y92.9 Unspecified place or not applicable; F17.210 Nicotine dependence, cigarettes, uncomplicated; I10 Essential (primary) hypertension; Z88.3 Allergy status to other anti-infective agents; Z88.5 Allergy status to narcotic agent; Z91.012 Allergy to eggs; Z91.040 Latex allergy status
CPT/HCPCS: 70450; 72125; 72128; 96372; 99284

== ENCOUNTER 2021-12-02 06:01 | Observation (INO) | payer BC ==
[2021-12-02] MEDS ORDERED: ASPIRIN 81 MG CHEWABLE TABLET ONE (06:25)
[2021-12-02] MEDS ORDERED: METOPROLOL TAR 50 MG TAB ONE (06:25)
[2021-12-02] MEDS ORDERED: NA CHLORIDE 0.9% 1,000 ML ONE (06:25)
[2021-12-02 06:38] LABS: Absolute Lymphocytes (CBC) 4.4 K/uL (0.7-4.9); Hematocrit 41.3 % (36.0-45.0); Lymphocytes % 38.3 % (15.3-44.8); MPV 7.1 fL (7.6-11.3); RBC Red Blood Cell Count 4.96 M/uL (3.86-4.86)
[2021-12-02 06:45] LABS: Protime INR 0.9
--- NOTE | 2021-12-02 06:45 | EDPHYS ---
Physician Documentation [facility] Name: Lisa Valentino Age: 56 yrs Sex: Female : 1965 Arrival Date: 12/02/2021 Time: 06:05 Bed 18 Private MD: ED Physician Ziggy Parks HPI: 12/02 06:30 This 56 yrs old Female presents to ER via Ambulatory with complaints of Chest nasrin Pain. 06:30 The patient or guardian reports chest pain that is located primarily in the substernal nasrin area, anterior chest wall, bilaterally. Onset: just prior to arrival, this morning. The pain radiates to the left shoulder. Associated signs and symptoms: Pertinent positives: lightheadedness, palpitations, shortness of breath. The chest pain is described as a pressure. Duration: The patient or guardian reports a single episode, that is still ongoing. Severity of pain: At its worst the pain was mild in the emergency department the pain is unchanged. The patient has experienced similar episodes in the past, multiple times. Historical: - Allergies: 06:25 Dilaudid; vc1 06:25 egg; vc1 06:25 Latex, Natural Rubber; vc1 06:25 Mycin antibiotics; vc1 - Home Meds: 06:25 atorvastatin Oral [Active]; Nexium Oral [Active]; vc1 06:28 Zoloft 100 mg Oral tab 2 tabs once daily [Active]; gabapentin oral [Active]; Tylenol #4 vc1 [Active]; Melatonin Oral [Active]; hydroxyzine HCl 25 mg Oral tab [Active]; Ozempic subcutaneous [Active]; - PMHx: 06:25 Anxiety; Arthritis; Depression; Hyperlipidemia; Hypertension; PTSD; Pulmonary Embolism; vc1 9 Herniated Disk; Diabetes mellitus; - Immunization history:: Adult Immunizations up to date. - Social history:: Smoking status: Patient reports the use of cigarette tobacco products, smokes 1.5 packs per day. - Family history:: not pertinent. ROS: 06:30 Constitutional: Negative for fever, chills, and weight loss, Eyes: Negative for injury, nasrin pain, redness, and discharge, ENT: Negative for injury, pain, and discharge, Neck: Negative for injury, pain, and swelling, Abdomen/GI: Negative for abdominal pain, nausea, vomiting, diarrhea, and constipation, Back: Negative for injury and pain, : Negative for injury, bleeding, discharge, and swelling, MS/Extremity: Negative for injury and deformity, Skin: Negative for injury, rash, and discoloration, Neuro: Negative for headache, weakness, numbness, tingling, and seizure, Psych: Negative for depression, anxiety, suicide ideation, homicidal ideation, and hallucinations, Allergy/Immunology: Negative for hives, rash, and allergies, Endocrine: Negative for neck swelling, polydipsia, polyuria, polyphagia, and marked weight changes, Hematologic/Lymphatic: Negative for swollen nodes, abnormal bleeding, and unusual bruising. 06:30 Cardiovascular: Positive for chest pain, of the chest, palpitations. Exam: 06:30 Constitutional: This is a well developed, well nourished patient who is awake, alert, nasrin and in no acute distress. Head/Face: Normocephalic, atraumatic. Eyes: Pupils equal round and reactive to light, extra-ocular motions intact. Lids and lashes normal. Conjunctiva and sclera are non-icteric and not injected. Cornea within normal limits. Periorbital areas with no swelling, redness, or edema. ENT: Nares patent. No nasal discharge, no septal abnormalities noted. Tympanic membranes are normal and external auditory canals are clear. Oropharynx with no redness, swelling, or masses, exudates, or evidence of obstruction, uvula midline. Mucous membranes moist. Neck: Trachea midline, no thyromegaly or masses palpated, and no cervical lymphadenopathy. Supple, full range of motion without nuchal rigidity, or vertebral point tenderness. No Meningismus. Chest/axilla: Normal chest wall appearance and motion. Nontender with no deformity. No lesions are appreciated. Cardiovascular: Regular rate and rhythm with a normal S1 and S2. No gallops, murmurs, or rubs. Normal PMI, no JVD. No pulse deficits. Respiratory: Lungs have equal breath sounds bilaterally, clear to auscultation and percussion. No rales, rhonchi or wheezes noted. No increased work of breathing, no retractions or nasal flaring. Abdomen/GI: Soft, non-tender, with normal bowel sounds. No distension or tympany. No guarding or rebound. No evidence of tenderness throughout. Back: No spinal tenderness. No costovertebral tenderness. Full range of motion. Skin: Warm, dry with normal turgor. Normal color with no rashes, no lesions, and no evidence of cellulitis. MS/ Extremity: Pulses equal, no cyanosis. Neurovascular intact. Full, normal range of motion. Neuro: Awake and alert, GCS 15, oriented to person, place, time, and situation. Cranial nerves II-XII grossly intact. Motor strength 5/5 in all extremities. Sensory grossly intact. Cerebellar exam normal. Normal gait. Psych: Awake, alert, with orientation to person, place and time. Behavior, mood, and affect are within normal limits. 06:30 ECG was reviewed by the Attending Physician. 06:30 Musculoskeletal/extremity: ROM: no acute changes, Circulation is intact in all extremities. Pulses: are normal with no appreciated deficits, Sensation intact. Compartment Syndrome exam of affected extremity: is normal. Joints: DVT Exam: No signs of deep vein thrombosis. no pain, no swelling, no tenderness, negative Homans' sign noted on exam, no appreciated bluish discoloration, no erythema, no increased warmth. Vital Signs: 06:19 BP 148 / 72; Pulse 86; Resp 23; Temp 99.1(O); Pulse Ox 98% on R/A; Weight 90.72 kg; vc1 Height 5 ft. 1 in. (154.94 cm); 06:57 BP 119 / 72; Pulse 87; Resp 15; Pulse Ox 98% on R/A; sm5 06:19 Body Mass Index 37.79 (90.72 kg, 154.94 cm) vc1 MDM: 06:07 Patient medically screened. nasrin 06:34 Differential diagnosis: abnormal EKG, acute pericarditis. HEART Score: History: nasrin Slightly Suspicious (0), ECG: Normal (0), Age: > 45 and < 65 years (1), Risk Factors: No Risk Factors Known (0), Troponin: < or = 1 x Normal Limit (0), Total Score = 1. The patient was given aspirin in the Emergency Department. The patient's deep vein thrombosis risk score was calculated as follows: Total Score: 0. This patient was found to be at low risk for a deep vein thrombosis by using the Well's assessment criteria. The patient's pulmonary embolism risk score was calculated as follows: Total Score: 0-2 points. This patient was found to be at low risk for a pulmonary embolism by using the Well's assessment criteria. TORSTEN Risk Score: 1 - Three or more CAD risk factors, [Family Hx], [HTN], [Elevated Cholesterol], TOTAL SCORE =. Data reviewed: vital signs, nurses notes, lab test result(s), EKG, radiologic studies, plain films. Data interpreted: panel monitor: rate is 23 beats/min, rhythm is regular, Pulse oximetry: on room air. Test interpretation: by ED physician or midlevel provider: ECG, plain radiologic studies. Counseling: I had a detailed discussion with the patient and/or guardian regarding: the historical points, exam findings, and any diagnostic results supporting the discharge/admit diagnosis, lab results, radiology results, the need for further work-up and treatment in the hospital. 12/02 06:13 Order name: Basic Metabolic Panel; Complete Time: 07:02 12/02 06:13 Order name: CBC with Diff; Complete Time: 07:02 12/02 06:13 Order name: LFT's; Complete Time: 07:02 12/02 06:13 Order name: Magnesium; Complete Time: 07:02 12/02 06:13 Order name: NT PRO-BNP; Complete Time: 07:02 12/02 06:13 Order name: PT-INR; Complete Time: 07:02 12/02 06:13 Order name: Troponin HS; Complete Time: 07:02 12/02 06:13 Order name: XRAY Chest (1 view) 12/02 06:13 Order name: SARS-COV-2 RT PCR (Document "Date of Onset" if Symptomatic) 12/02 06:30 Order name: TSH [facility] 12/02 06:30 Order name: US Extremity Venous W Compression [place] 12/02 06:30 Order name: CT Chest For PE Angio [facility] 12/02 06:59 Order name: Echo with Doppler [facility] 12/02 08:23 Order name: T4 Free [facility] 12/02 06:13 Order name: EKG; Complete Time: 06:14 [facility] 12/02 06:13 Order name: Cardiac monitoring; Complete Time: 06:16 [facility] 12/02 06:13 Order name: EKG - Nurse/Tech; Complete Time: 06:16 12/02 06:13 Order name: IV Saline Lock; Complete Time: 06:16 12/02 06:13 Order name: Labs collected and sent; Complete Time: 06:32 [facility] 12/02 06:13 Order name: O2 Per Protocol; Complete Time: 06:16 [facility] 12/02 06:13 Order name: O2 Sat Monitoring; Complete Time: 06:16 [facility] 12/02 06:54 Order name: CONS Physician Consult EDMS 12/02 08:16 Order name: CT EDMS EC:30 Rate is 85 beats/min. Rhythm is regular. QRS Casa is Normal. HI interval is normal. QRS nasrin interval is normal. QT interval is normal. No Q waves. T waves are Normal. No ST changes noted. Clinical impression: NSR w/ Non-specific ST/T Changes and No evidence of ischemia. Interpreted by me. Reviewed by me. Administered Medications: 06:32 Drug: Lopressor (metoprolol TARTRATE) 50 mg Route: PO; sm5 06:57 Follow up: Response: No adverse reaction 5 06:32 Drug: Aspirin Chewable Tablet 162 mg Route: PO; sm5 06:57 Follow up: Response: No adverse reaction 5 06:32 Drug: NS 0.9% 1000 ml Route: IV; Rate: 125 ml/hr; Site: right antecubital; sm5 06:55 Drug: Lovenox (enoxaparin) 90 mg Route: Sub-Q; Site: right lower abdomen; sm5 Disposition Summary: 12/02/21 06:44 Hospitalization Ordered Hospitalization Status: Observation nasrin Provider: Chico Harmon cha Location: Telemetry/MedSurg (observation) nasrin Condition: Fair nasrin Problem: new nasrin Symptoms: have improved nasrin Bed/Room Type: Standard nasrin Room Assignment: nasrin Diagnosis - Chest pain, unspecified nasrin - Dyspnea nasrin - Palpitations nasrin Discharge Instructions: - Discharge Summary Sheet ww Forms: - Medication Reconciliation Form nasrin - SBAR form nasrin - Family Work Release ww Signatures: Dispatcher [employer] Ziggy Goddard MD MD cha Mazur, Sarah RN RN sm5 Taylor Dyer RN RN vc1
--- NOTE | 2021-12-02 06:45 | ER ---
Nurse's Notes [facility] Name: Lisa Valentino Age: 56 yrs Sex: Female : 1965 Arrival Date: 12/02/2021 Time: 06:05 Bed 18 Private MD: Diagnosis: Chest pain, unspecified;Dyspnea;Palpitations Presentation: 12/02 06:19 Chief complaint: Patient states: "I saw my yesterday because I have been having vc1 palpitations they did an EKG but it was normal. I woke up in the middle of the night with chest pain and now it feels like a bird is fluttering in my chest.". Coronavirus screen: At this time, the client does not indicate any symptoms associated with coronavirus-19. Ebola Screen: No symptoms or risks identified at this time. Initial Sepsis Screen: Does the patient meet any 2 criteria? RR > 20 per min. No. Patient's initial sepsis screen is negative. Does the patient have a suspected source of infection? No. Patient's initial sepsis screen is negative. Risk Assessment: Do you want to hurt yourself or someone else? Patient reports no desire to harm self or others. Onset of symptoms is unknown. 06:19 Method Of Arrival: Ambulatory vc1 06:19 Acuity: [place] 2 vc1 Triage Assessment: 06:25 General: Appears in no apparent distress. Behavior is calm, cooperative, appropriate vc1 for age. Pain: Complains of pain in chest Pain does not radiate. Cardiovascular: Reports chest pain, palpitations. Historical: - Allergies: 06:25 Dilaudid; vc1 06:25 egg; vc1 06:25 Latex, Natural Rubber; vc1 06:25 Mycin antibiotics; vc1 - Home Meds: 06:25 atorvastatin Oral [Active]; Nexium Oral [Active]; vc1 06:28 Zoloft 100 mg Oral tab 2 tabs once daily [Active]; gabapentin oral [Active]; Tylenol #4 vc1 [Active]; Melatonin Oral [Active]; hydroxyzine HCl 25 mg Oral tab [Active]; Ozempic subcutaneous [Active]; - PMHx: 06:25 Anxiety; Arthritis; Depression; Hyperlipidemia; Hypertension; PTSD; Pulmonary Embolism; vc1 9 Herniated Disk; Diabetes mellitus; - Immunization history:: Adult Immunizations up to date. - Social history:: Smoking status: Patient reports the use of cigarette tobacco products, smokes 1.5 packs per day. - Family history:: not pertinent. Screenin:27 Abuse screen: Denies threats or abuse. Nutritional screening: No deficits noted. vc1 Tuberculosis screening: No symptoms or risk factors identified. Fall Risk None identified. Assessment: 06:36 Pain: Pain began 3 hours ago. sm5 06:56 General: Appears in no apparent distress. Behavior is cooperative. Pain: Complains of sm5 pain in chest. Neuro: No deficits noted. [place] Agitation-Sedation Scale (RASS): 0 - Alert and Calm Level of Consciousness is awake, alert, obeys commands, Oriented to person, place, time, situation. Cardiovascular: Reports chest pain, Capillary refill < 3 seconds Patient's skin is warm and dry. Rhythm is sinus rhythm. Respiratory: No deficits noted. Airway is patent Trachea midline Respiratory effort is even, unlabored. Vital Signs: 06:19 BP 148 / 72; Pulse 86; Resp 23; Temp 99.1(O); Pulse Ox 98% on R/A; Weight 90.72 kg; vc1 Height 5 ft. 1 in. (154.94 cm); 06:57 BP 119 / 72; Pulse 87; Resp 15; Pulse Ox 98% on R/A; sm5 06:19 Body Mass Index 37.79 (90.72 kg, 154.94 cm) vc1 ED Course: 06:05 Patient arrived in ED. kz 06:07 Johnathan Alex, ABRIL is Primary Nurse. as6 06:07 Ziggy Parks MD is Attending Physician. nasrin 06:22 Triage completed. vc1 06:27 Arm band placed on right wrist. vc1 06:28 Patient has correct armband on for positive identification. Bed in low position. Call vc1 light in reach. Client placed on continuous cardiac and pulse oximetry monitoring. NIBP monitoring applied. 06:28 Inserted saline lock: 20 gauge in right antecubital area, using aseptic technique. vc1 Blood collected. Patient maintains SpO2 saturation greater than 95% on room air. 06:35 Adriana Dinh, ABRIL is Primary Nurse. sm5 06:43 Chico Harmon MD is Hospitalizing Provider. nasrin 06:44 XRAY Chest (1 view) In Process Unspecified. EDMS 06:56 US Extremity Venous W Compression Shade In Process Unspecified. EDMS 07:07 Primary Nurse role handed off by Adriana Dinh RN eb 10:03 No provider procedures requiring assistance completed. IV discontinued, bleeding ww controlled, No redness/swelling at site. Pressure dressing applied. Administered Medications: 06:32 Drug: Lopressor (metoprolol TARTRATE) 50 mg Route: PO; sm5 06:57 Follow up: Response: No adverse reaction sm5 06:32 Drug: Aspirin Chewable Tablet 162 mg Route: PO; sm5 06:57 Follow up: Response: No adverse reaction sm5 06:32 Drug: NS 0.9% 1000 ml Route: IV; Rate: 125 ml/hr; Site: right antecubital; sm5 06:55 Drug: Lovenox (enoxaparin) 90 mg Route: Sub-Q; Site: right lower abdomen; sm5 Medication: 06:36 VIS not applicable for this client. 5 Outcome: 06:44 Decision to Hospitalize by Provider. nasrin 10:03 Discharged to home ambulatory, with family. ww 10:03 Condition: stable 10:03 Discharge instructions given to patient, family, Instructed on discharge instructions, follow up and referral plans. medication usage, safety practices, Demonstrated understanding of instructions, follow-up care, medications. 10:04 Patient left the ED. ww Signatures: Dispatcher [employer] Ziggy Goddard MD MD cha Botello, Elizabeth eb Slawson, Ashby, RN RN as6 Adriana Dinh, RN RN [email or web address] Rosy Rainey RN RN Taylor Kaye RN RN 1 Graciela Forman
[2021-12-02 06:56] LABS: ALT/SGPT 39 U/L (12-78); AST/SGOT 12 U/L (15-37); Albumin 3.5 g/dL (3.4-5.0); Alkaline Phosphatase 83 U/L (45-117); BUN Blood Urea Nitrogen 20 mg/dL (7-18); Bicarbonate 26 mmol/L (21-32); Bilirubin Total 0.2 mg/dL (0.2-1.0); Glomerular Filtration Rate 83 ml/min (=/>90); Glucose Level 90 mg/dL (74-106); Magnesium 2.1 mg/dL (1.8-2.4); NT PRO-BNP 27 pg/mL (<125); Potassium 3.8 mmol/L (3.5-5.1); Protein, Total 7.4 g/dL (6.4-8.2); Sodium Level 138 mmol/L (136-145)
[2021-12-02] MEDS ORDERED: ENOXAPARIN 100 MG/ML SYR SQ ONE (06:57)
[2021-12-02 07:01] LABS: Bilirubin Direct < 0.1 mg/dL (0-0.2); Troponin High Sensitivity < 3.0 pg/mL (<58.9)
--- NOTE | 2021-12-02 07:10 | RAD REPORT ---
EXAM DESCRIPTION: US - Extrem Venous W Compress [place] - 12/02/2021 6:54 am CLINICAL HISTORY: PAINbilateral COMPARISON: None. TECHNIQUE: Real-time sonographic evaluation of the bilateral lower extremity common femoral, superfi cial femoral, popliteal and posterior tibial veins was performed. FINDINGS: Normal compressibility, flow augmentation, phasic flow and spontaneous flow are identified in the left and right lower extremity common femoral, superficial femoral, popliteal and posterior t ibial veins. No intraluminal filling defects seen. IMPRESSION: No DVT in either lower extremity.
--- NOTE | 2021-12-02 07:24 | RAD REPORT ---
EXAM DESCRIPTION: RAD - Chest Single View - 12/02/2021 6:42 am CLINICAL HISTORY: Chest pain COMPARISON: Portable October 2019 TECHNIQUE: AP portable chest image was obtained 12/02/2021 6:42 am . FINDINGS: Lung volumes are low accentuating interstitial markings. Vague nodular density in the mid right lung field is not clearly different from prior imaging. No failure or volume overload. Heart and vasculature are normal. No measurable pleural effusion and no pneumothorax. No acute bony abnormality seen. No acute aortic findings suspected. IMPRESSION: No acute cardiopulmonary process. Ill-defined nodular focus mid right lung field has not change from prior imaging performed 2 years ea johnny.
[2021-12-02 08:09] LABS: Thyroid Stimulating Hormone 4.86 uIU/mL (0.360-3.740)
[2021-12-02] MEDS ORDERED: ONDANSETRON 4 MG/2 ML VIAL IV PRN (08:13)
[2021-12-02] MEDS ORDERED: ACETAMINOPHEN 325 MG TABLET PO PRN (08:13)
--- NOTE | 2021-12-02 08:16 | RAD REPORT ---
EXAM DESCRIPTION: CT - Chest For Pe Angio - 12/02/2021 7:41 am CLINICAL HISTORY: cp/dyspnea, chest pain, shortness of breath COMPARISON: CTANGIO CHEST FOR PE dated 06/17/2014; Chest Single View dated 12/02/2021 TECHNIQUE: Dynamically enhanced 3 mm thick images of the chest were obtained during administration o f approximately 150mL Isovue 370 IV contrast. Coronal and oblique MIP reconstruction images were gene rated and reviewed. Exam utilizes a protocol to evaluate the pulmonary arterial tree. All CT scans are performed using dose optimization technique as appropriate and may include automated exposure control or mA/KV adjustment according to patient size. FINDINGS: No pulmonary emboli are identified. The aorta as imaged shows no acute or suspicious finding. No pericardial thickening or effusion. No acute infiltrate or worrisome mass lesion identifiable. A 13 millimeter centrally calcified nodule is present in the right lower lobe abutting the major fissure. There several additional 2-4 mm nonca lcified juxtapleural nodules extending more inferiorly along the lower portion of the major fissure. Patient has a cluster of 3-4 mm nodules in the right middle lobe near the minor fissure and a vague 4 -5 mm nodule in the right upper lobe. Partially calcified right hilar lymph nodes are present. No ple ural effusion or pleural thickening. No pneumothorax. No suspicious mediastinal mass or lymphadenopathy. No left hilar suspicious finding. No chest wall ma sses or abnormal axillary lymphadenopathy. IMPRESSION: No pulmonary emboli identified. Calcified and noncalcified pulmonary nodules are present along with right hilar partially calcified l ymph nodes. These nodules are either benign due to stability back to 2013 or show clearly benign old granulomatous findings.
[2021-12-02 08:25] VITALS: O2SAT 98
[2021-12-02] MEDS ORDERED: ASPIRIN EC 81 MG TAB PO SCH (09:00)
[2021-12-02] MEDS ORDERED: FAMOTIDINE 20 MG/2 ML VIAL IV SCH (09:00)
[2021-12-02] MEDS ORDERED: METOPROLOL TAR 50 MG TAB PO SCH (09:00)
[2021-12-02] MEDS ORDERED: AMLODIPINE 5 MG TAB PO SCH (09:00)
--- NOTE | 2021-12-02 09:15 | P.SSS ---
Patient History Date of Service: 12/02/21 Primary Care Provider: Thomas Reason for admission: palpations History of Present Illness: Patient is an office patient of ours. She had been to the office yesterday. Complaining of occasional elevations in her blood pressure and palpations. She was started on Carvedilol and referred to Dr. Gomez. The patient did not get her carvedilol. The patient had palpations last night and came in to ER. She had a negative troponins. Have compared her ekg to the one taken in the office yesterday. The patient does admit to a history of sleep apnea. The patient was diagnoised in 2011. She stopped using her cpap 5 years ago due to discomfort. Allergies egg Allergy (Verified 01/26/14 20:34) unknown latex Allergy (Verified 01/26/14 20:34) unknown eggs Allergy (Uncoded 10/28/14 13:27) Unknown Erythromycin Allergy (Uncoded 05/28/15 16:56) Unknown mycins antibiotics Allergy (Uncoded 12/07/13 03:17) Unknown Home Medications: Atorvastatin Calcium [Lipitor] 40 mg PO DAILY 01/26/14 Esomeprazole Mag Trihydrate [Nexium] 40 mg PO DAILY 01/26/14 Sertraline [Zoloft*] 100 mg PO DAILY 01/26/14 clonazePAM [Klonopin*] 2 mg PO DAILY PRN 01/26/14 hydrOXYzine HCL [Atarax*] 1 tab PO DAILY PRN 01/26/14 levoFLOXacin [Levaquin*] 750 mg PO DAILY 01/26/14 lisinopriL [Prinivil*] 10 mg PO DAILY 01/26/14 traMADol HCL [Ultram*] 50 mg PO Q6HP PRN 01/26/14 - Past Medical/Surgical History Diabetic: No -: PE in 2011 -: sleep apnea -: htn -: depression -: anxiety -: ptsd -: high cholesterol -: arthritis -: "patches on lungs" -: tonsilectomy -: both ankles -: hysterectomy -: bladder lift -: kala november 2012 -: tubal ligation 1988 - Social History Alcohol use: Yes CD- Drugs: No Caffeine use: Yes Review of Systems 10-point ROS is otherwise unremarkable Cardiovascular: Palpitations Physical Examination - Physical Exam General: Alert, In no apparent distress HEENT: Atraumatic, PERRLA, Mucous membr. moist/pink, EOMI, Sclerae nonicteric Neck: Supple, 2+ carotid pulse no bruit, No LAD, Without JVD or thyroid abnormality Respiratory: Clear to auscultation bilaterally, Normal air movement Cardiovascular: Regular rate/rhythm, Normal S1 S2 Gastrointestinal: Normal bowel sounds, No tenderness Musculoskeletal: No tenderness Integumentary: No rashes Neurological: Normal gait, Normal speech, Normal strength at 5/5 x4 extr, Normal tone, Normal affect Lymphatics: No axilla or inguinal lymphadenopathy - Studies Laboratory Data (last 24 hrs) 12/02/21 06:28: PT 9.9, INR 0.90 12/02/21 06:28: WBC 11.6 H, Hgb 14.0, Hct 41.3, Plt Count 386 12/02/21 06:28: Sodium 138, Potassium 3.8, BUN 20 H, Creatinine 0.84, Glucose 90, Magnesium 2.1, Total Bilirubin 0.2, AST 12 L, ALT 39, Alkaline Phosphatase 83 - Diagnosis (Problem(s)) (1) Arrhythmia Current Visit: Yes Status: Acute Plan: Patient has no ekg changes or troponins. 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 Follow up with Dr. Gomez who we have referred her to. The patient should also be evaluated for a cpap Qualifiers: Arrhythmia type: unspecified cardiac arrhythmia Qualified Code(s): I49.9 - Cardiac arrhythmia, unspecified (2) Sleep apnea Current Visit: Yes Status: Acute Plan: will most likely need to send her for a home sleep study to get her a new cpap We can do this as an out patient Qualifiers: Sleep apnea type: obstructive Qualified Code(s): G47.33 - Obstructive sleep apnea (adult) (pediatric) (3) Anxiety Current Visit: Yes Status: Chronic Plan: continue her buproprion. (4) Chronic pain syndrome Current Visit: Yes Status: Chronic Plan: She sees pain management. However pain, anxiety and palpations can exacerbate each other - Disposition Disposition: ROUTINE DISCHARGE Diet: Regular Activity: Ad malissa Physician Review: Patient Assessed, Agree with Above Assessment and Plan Critical Care: No Time Spent Managing Pts Care (In Minutes): 45
[2021-12-02 10:07] VITALS: BP 125/91
[2021-12-02 11:23] VITALS: TEMP 99.1
[2021-12-02] MEDS ORDERED: ENOXAPARIN 100 MG/ML SYR SQ SCH (18:00)
--- NOTE | 2021-12-03 14:53 | EKG ---
Test Date: 2021-12-02 Test Time: 06:14:47 Service Specialist: MARVIN MEASUREMENT RESULTS: Intervals: Rate: 85 OH: 144 QRSD: 86 QT: 346 QTc: 411 [place]: P: 27 OH: 144 QRS: 65 T: 23 INTERPRETIVE STATEMENTS: Normal sinus rhythm Normal ECG Compared to ECG 10/22/2019 18:02:18 T-wave abnormality no longer present Possible ischemia no longer present Electronically Signed On 12-03-21 14:52:36 CDT by Jordin Gongora
== END 2021-12-02 10:08 | disposition home or self-care (01) ==
LOC: ER 06:01 → ERHOLD 06:48
PROVIDERS: ADMIT Internal Medicine; ATTEND Internal Medicine
DX: I49.9 Cardiac arrhythmia, unspecified (principal); G47.33 Obstructive sleep apnea (adult) (pediatric); G89.4 Chronic pain syndrome; I10 Essential (primary) hypertension; F41.9 Anxiety disorder, unspecified; F32.A Depression, unspecified; F43.10 Post-traumatic stress disorder, unspecified; E78.00 Pure hypercholesterolemia, unspecified; M19.90 Unspecified osteoarthritis, unspecified site; F17.210 Nicotine dependence, cigarettes, uncomplicated; Z86.711 Personal history of pulmonary embolism; Z79.899 Other long term (current) drug therapy; Z88.1 Allergy status to other antibiotic agents; Z88.3 Allergy status to other anti-infective agents; Z91.012 Allergy to eggs; Z91.040 Latex allergy status; Z90.710 Acquired absence of both cervix and uterus; Z90.49 Acquired absence of other specified parts of digestive tract; Z20.822 Contact with and (suspected) exposure to COVID-19
CPT/HCPCS: 93005; 85025; 80048; 36415; 83735; 85610; 80076; 84443; 84484; 84439; 83880; 71275; 71045; 93970; 96372; 99285; U0003; Q9967; J1650; J7030; G0378 ×2

== ENCOUNTER 2022-06-13 09:25 | Observation (INO) | payer BC ==
[2022-06-13] MEDS ORDERED: NITROGLYCERIN 0.4 MG/TAB SL ONE (10:12)
[2022-06-13] MEDS ORDERED: FENTANYL CITR 100 MCG/2 ML ONE ×3 (10:12→14:29)
--- NOTE | 2022-06-13 10:26 | RAD REPORT ---
EXAM DESCRIPTION: [place] Single View06/13/2022 9:49 am CLINICAL HISTORY: Chest pain COMPARISON: November 2021 FINDINGS: The lungs appear clear of acute infiltrate. The heart is normal size IMPRESSION: No acute abnormalities displayed
[2022-06-13 11:05] LABS: Absolute Lymphocytes (CBC) 2.4 K/uL (0.7-4.9); Hematocrit 40.2 % (36.0-45.0); Lymphocytes % 35.2 % (15.3-44.8); MPV 7.6 fL (7.6-11.3); RBC Red Blood Cell Count 4.79 M/uL (3.86-4.86)
[2022-06-13 11:33] LABS: Bilirubin Total 0.2 mg/dL (0.2-1.0); Potassium 3.5 mmol/L (3.5-5.1); Protein, Total 6.7 g/dL (6.4-8.2)
[2022-06-13 11:36] LABS: Troponin High Sensitivity 73.6 pg/mL (<58.9)
--- NOTE | 2022-06-13 12:10 | EDPHYS ---
Physician Documentation [facility] Name: Lisa Valentino Age: 56 yrs Sex: Female : 1965 Arrival Date: 06/13/2022 Time: 09:33 Bed 4 Private MD: ED Physician Guero Hermosillo HPI: 06/13 09:49 This 56 yrs old Female presents to ER via EMS with complaints of Chest pain. rt 09:49 The patient or guardian reports chest pain that is located primarily in the substernal rt area. Onset: last night. The pain radiates to the left arm, Associated signs and symptoms: Pertinent positives: nausea, Pertinent negatives: abdominal pain. The chest pain is described as squeezing. Modifying factors: The symptoms are alleviated by rest, the symptoms are aggravated by activity. Severity of pain: At its worst the pain was moderate. She was substernal chest pain starting last night, worsening with exertion. Pain worsened today prompting her to come to the ED for further evaluation. She states that it has not improved with nitro. She reports a sensitivity to aspirin, therefore, refused aspirin by EMS.. REINFORCER: 09:36 LMP N/A - Post-menopause db Historical: - Allergies: 09:36 Dilaudid; db 09:36 egg; db 09:36 Latex, Natural Rubber; db 09:36 Mycin antibiotics; db - PMHx: 09:36 8 bulging disks; 9 Herniated Disk; Anxiety; Arthritis; Depression; diabetes mellitus; db Hyperlipidemia; Hypertension; PTSD; Pulmonary Embolism; - PSHx: 09:36 Total abdominal hysterectomy; Exploratory laparotomy; Tonsillectomy; Cholecystectomy; db bilateral ankle; - Immunization history:: Adult Immunizations unknown, Client reports receiving the 2nd dose of the Covid vaccine. - Social history:: Smoking status: Patient reports the use of cigarette tobacco products, smokes one-half pack cigarettes per day. - Family history:: not pertinent. ROS: 09:49 Constitutional: Negative for fever, chills, and weight loss, Eyes: Negative for injury, rt pain, redness, and discharge, ENT: Negative for injury, pain, and discharge, Neck: Negative for injury, pain, and swelling, Respiratory: Negative for shortness of breath, cough, wheezing, and pleuritic chest pain, Back: Negative for injury and pain, MS/Extremity: Negative for injury and deformity, Skin: Negative for injury, rash, and discoloration, Neuro: Negative for headache, weakness, numbness, tingling, and seizure, Psych: Negative for depression, anxiety, suicide ideation, homicidal ideation, and hallucinations. 09:49 Cardiovascular: Positive for chest pain, Negative for edema. 09:49 Abdomen/GI: Positive for nausea, Negative for abdominal pain. Exam: 09:49 Constitutional: This is a well developed, well nourished patient who is awake, alert, rt and in no acute distress. Head/Face: Normocephalic, atraumatic. Eyes: Pupils equal round and reactive to light, extra-ocular motions intact. Lids and lashes normal. Conjunctiva and sclera are non-icteric and not injected. Cornea within normal limits. Periorbital areas with no swelling, redness, or edema. ENT: Nares patent. No nasal discharge, no septal abnormalities noted. Tympanic membranes are normal and external auditory canals are clear. Oropharynx with no redness, swelling, or masses, exudates, or evidence of obstruction, uvula midline. Mucous membranes moist. Neck: Trachea midline, no thyromegaly or masses palpated, and no cervical lymphadenopathy. Supple, full range of motion without nuchal rigidity, or vertebral point tenderness. No Meningismus. Chest/axilla: Normal chest wall appearance and motion. Nontender with no deformity. No lesions are appreciated. Cardiovascular: Regular rate and rhythm with a normal S1 and S2. No gallops, murmurs, or rubs. Normal PMI, no JVD. No pulse deficits. Respiratory: Lungs have equal breath sounds bilaterally, clear to auscultation and percussion. No rales, rhonchi or wheezes noted. No increased work of breathing, no retractions or nasal flaring. Abdomen/GI: Soft, non-tender, with normal bowel sounds. No distension or tympany. No guarding or rebound. No evidence of tenderness throughout. Back: No spinal tenderness. No costovertebral tenderness. Full range of motion. Skin: Warm, dry with normal turgor. Normal color with no rashes, no lesions, and no evidence of cellulitis. MS/ Extremity: Pulses equal, no cyanosis. Neurovascular intact. Full, normal range of motion. Neuro: Awake and alert, GCS 15, oriented to person, place, time, and situation. Cranial nerves II-XII grossly intact. Motor strength 5/5 in all extremities. Sensory grossly intact. Cerebellar exam normal. Normal gait. Psych: Awake, alert, with orientation to person, place and time. Behavior, mood, and affect are within normal limits. 10:00 ECG was reviewed by the Attending Physician. rt Vital Signs: 09:30 BP 144 / 80; Pulse 78; Resp 20; Temp 98.6(O); Pulse Ox 98% on R/A; Weight 102.06 kg; db Height 5 ft. 1 in. (154.94 cm); Pain 7/10; 10:38 BP 161 / 93; Pulse 79; Resp 18; Pulse Ox 99% ; Pain 5/10; db 11:30 BP 111 / 60; Pulse 73; Resp 16; Pulse Ox 99% on R/A; db 11:57 BP 111 / 60; Pulse 70; Resp 17; Pulse Ox 99% on R/A; jd3 12:10 BP 155 / 108; Pulse 72; db 12:45 BP 172 / 105; Pulse 69; Resp 14; Pulse Ox 99% on R/A; Pain 8/10; db 12:50 BP 165 / 92; Pulse 82; Resp 16; Pulse Ox 97% on R/A; Pain 7/10; db 12:55 BP 128 / 94; Pulse 85; Resp 20; Pulse Ox 98% on R/A; Pain 6/10; db 13:00 BP 115 / 79; Pulse 80; Resp 16; Pulse Ox 97% ; Pain 6/10; db 13:05 BP 126 / 71; Pulse 84; Resp 24; Pulse Ox 98% on R/A; db 13:15 BP 135 / 61; Pulse 77; Resp 16; Pulse Ox 97% on R/A; db 13:30 BP 142 / 78; Pulse 68; Resp 16; Pulse Ox 97% on R/A; db 14:15 BP 116 / 62; Pulse 77; Resp 20 S; Pulse Ox 95% on R/A; db 14:30 Pain 5/10; db 09:30 Body Mass Index 42.51 (102.06 kg, 154.94 cm) db MDM: 09:36 Patient medically screened. rt 12:13 Differential diagnosis: acute myocardial infarction, acute pericarditis, anxiety, rt coronary artery disease chest wall pain, congestive heart failure pancreatitis, pneumonia, pneumothorax, pulmonary embolus. HEART Score: History: Highly Suspicious (2), ECG: Normal (0), Age: > 45 and < 65 years (1), Risk Factors: 1 or 2 risk factors (1), Troponin: > 1 and < 3 x normal limit (1), Total Score = 5. Data reviewed: vital signs, nurses notes, old medical records, lab test result(s), EKG, radiologic studies. ED course: Presents to the ED with a and exertional chest pain the patient has a nonischemic EKG, symptoms are improved with treatment in the ED. She has been having indeterminate troponin, will admit for further care, do not suspect PE, TAD.. 06/13 09:36 Order name: CBC with Diff; Complete Time: 11:18 rt 06/13 09:36 Order name: NT PRO-BNP; Complete Time: 11:38 rt 06/13 09:36 Order name: Troponin HS; Complete Time: 11:38 rt 06/13 09:36 Order name: XRAY Chest (1 view); Complete Time: 10:30 rt 06/13 09:36 Order name: CMP; Complete Time: 11:38 rt 06/13 12:15 Order name: SARS-COV-2 Antigen Rapid; Complete Time: 13:02 bd 06/13 09:36 Order name: EKG; Complete Time: 09:36 rt 06/13 12:11 Order name: CONS Physician Consult EDMS 06/13 09:36 Order name: Cardiac monitoring; Complete Time: 09:46 rt 06/13 09:36 Order name: EKG - Nurse/Tech; Complete Time: 10:00 rt 06/13 09:36 Order name: IV Saline Lock; Complete Time: 10:00 rt 06/13 09:36 Order name: Labs collected and sent; Complete Time: 10:00 rt 06/13 09:36 Order name: O2 Per Protocol; Complete Time: 10:00 rt 06/13 09:36 Order name: O2 Sat Monitoring; Complete Time: 10:00 rt 06/13 10:10 Order name: Labs - recollect needed: recollect green and lavender top; Complete Time: bd 11:08 EC:00 Rate is 74 beats/min. Rhythm is regular, Normal Sinus Rhythm with No ectopy. QRS [place] rt is Normal. IN interval is normal. QRS interval is normal. QT interval is normal. No Q waves. T waves are Normal. No ST changes noted. Clinical impression: Normal ECG. Interpreted by me. Administered Medications: 10:28 Drug: fentaNYL (PF) 100 mcg Route: IVP; Site: right antecubital; db 12:35 Follow up: Response: No adverse reaction db 10:48 Not Given (Patient Refused): Nitroglycerin 0.4 mg Sublingual once; every five minute if db needed x3 12:27 Drug: fentaNYL (PF) 100 mcg Route: IVP; Site: right antecubital; jd3 12:34 Follow up: Response: No adverse reaction db 12:45 Drug: Nitro-Bid (nitroglycerin) Ointment 2 % 1 inches Route: Transdermal; Site: db anterior chest wall; 14:33 Follow up: Response: No adverse reaction db 12:45 Drug: Nicotine Patch 21 mg/24 hr 1 patches Route: Transdermal; Site: affected area; db 14:33 Follow up: Response: No adverse reaction db 12:45 Drug: Nitroglycerin 0.4 mg Route: Sublingual; db 12:50 Drug: Nitroglycerin 0.4 mg Route: Sublingual; db 12:55 Drug: Nitroglycerin 0.4 mg Route: Sublingual; db 14:33 Follow up: Response: No adverse reaction db 14:34 Follow up: Response: Pain is decreased db Disposition Summary: 06/13/22 12:10 Hospitalization Ordered Hospitalization Status: Observation rt Provider: Chico Harmon rt Location: Telemetry/MedSurg (observation) rt Condition: Fair rt Problem: new rt Symptoms: have improved rt Bed/Room Type: Standard rt Room Assignment: 218(06/13/22 14:57) bd Diagnosis - Chest pain, unspecified rt Forms: - Medication Reconciliation Form rt - SBAR form rt Signatures: Dispatcher [employer] EDKat Swain Jonathon, RN RN jTanya Serrano RN RN db Guero Hermosillo MD MD rt Corrections: (The following items were deleted from the chart) 14:57 12:10 rt bd
--- NOTE | 2022-06-13 12:10 | ER ---
Nurse's Notes [facility] Name: Lisa Valentino Age: 56 yrs Sex: Female : 1965 Arrival Date: 06/13/2022 Time: 09:33 Bed 4 Private MD: Diagnosis: Chest pain, unspecified Presentation: 06/13 09:30 Chief complaint: EMS states: chest pain started today. given Nitro 0.4 mg. Asprin held db due to patient stated unable to have. Coronavirus screen: Vaccine status: Patient reports receiving the 2nd dose of the covid vaccine. At this time, the client does not indicate any symptoms associated with coronavirus-19. Ebola Screen: Patient negative for fever greater than or equal to 101.5 degrees Fahrenheit, and additional compatible Ebola Virus Disease symptoms Patient denies exposure to infectious person. Patient denies travel to an Ebola-affected area in the 21 days before illness onset. No symptoms or risks identified at this time. Initial Sepsis Screen: Does the patient meet any 2 criteria? No. Patient's initial sepsis screen is negative. Does the patient have a suspected source of infection? No. Patient's initial sepsis screen is negative. Risk Assessment: Do you want to hurt yourself or someone else? Patient reports no desire to harm self or others. Onset of symptoms was June 13, 2022. 09:30 Method Of Arrival: EMS: [facility] db 09:30 Acuity: [place] 2 db 09:30 Care prior to arrival: Medication(s) given: Nitroglycerin, 0.4 mg SL. db Triage Assessment: 09:36 General: Appears in no apparent distress. comfortable, Behavior is calm, cooperative, db appropriate for age. Pain: Pain radiates to neck and left arm Pain currently is 7 out of 10 on a pain scale. EENT: No deficits noted. No signs and/or symptoms were reported regarding the EENT system. Neuro: No deficits noted. Level of Consciousness is awake, alert, obeys commands, Oriented to person, place, time, situation, Appropriate for age. Cardiovascular: Reports chest pain, palpitations, Heart tones present Capillary refill < 3 seconds Pulses are all present. Edema is absent. Rhythm is sinus rhythm Chest pain is located in left. Respiratory: No deficits noted. Airway is patent Respiratory effort is even, unlabored, Respiratory pattern is regular, symmetrical, Breath sounds are clear bilaterally. GI: No deficits noted. No signs and/or symptoms were reported involving the gastrointestinal system. : No deficits noted. No signs and/or symptoms were reported regarding the genitourinary system. Derm: No deficits noted. No signs and/or symptoms reported regarding the dermatologic system. Musculoskeletal: No deficits noted. No signs and/or symptoms reported regarding the musculoskeletal system. CT SCAN TECHNOLOGIST: 09:36 LMP N/A - Post-menopause db Historical: - Allergies: 09:36 Dilaudid; db 09:36 egg; db 09:36 Latex, Natural Rubber; db 09:36 Mycin antibiotics; db - PMHx: 09:36 8 bulging disks; 9 Herniated Disk; Anxiety; Arthritis; Depression; diabetes mellitus; db Hyperlipidemia; Hypertension; PTSD; Pulmonary Embolism; - PSHx: 09:36 Total abdominal hysterectomy; Exploratory laparotomy; Tonsillectomy; Cholecystectomy; db bilateral ankle; - Immunization history:: Adult Immunizations unknown, Client reports receiving the 2nd dose of the Covid vaccine. - Social history:: Smoking status: Patient reports the use of cigarette tobacco products, smokes one-half pack cigarettes per day. - Family history:: not pertinent. Screenin:43 Abuse screen: Denies threats or abuse. Denies injuries from another. Nutritional db screening: No deficits noted. Tuberculosis screening: No symptoms or risk factors identified. Fall Risk None identified. No fall in past 12 months (0 pts). No secondary diagnosis (0 pts). IV access (20 points). Ambulatory Aid- None/Bed Rest/Nurse Assist (0 pts). Gait- Normal/Bed Rest/Wheelchair (0 pts) Mental Status- Oriented to own ability (0 pts). Total Reinoso Fall Scale indicates No Risk (0-24 pts). Assessment: 09:43 Reassessment: see triage assessment for initial assessment. db 10:49 Reassessment: Patient appears in no apparent distress at this time. Patient and/or db family updated on plan of care and expected duration. Pain level reassessed. Patient is alert, oriented x 3, equal unlabored respirations, skin warm/dry/pink. Patient states feeling better. Patient states symptoms have improved. 11:30 Reassessment: Patient appears in no apparent distress at this time. Patient and/or db family updated on plan of care and expected duration. Pain level reassessed. Patient is alert, oriented x 3, equal unlabored respirations, skin warm/dry/pink. Patient states symptoms have improved. 11:30 Reassessment: Patient appears in no apparent distress at this time. Patient and/or db family updated on plan of care and expected duration. Pain level reassessed. Patient is alert, oriented x 3, equal unlabored respirations, skin warm/dry/pink. Patient states feeling better. Patient states symptoms have improved. 12:45 Reassessment: patient complaining of chest pain after being assisted with wheelchair to db use restroom. Cardiovascular: Reports chest pain, palpitations. 12:45 Respiratory: Reports shortness of breath on exertion. db 13:04 Reassessment: patient complained of chest pain increased after going to restroom. db Patient initial BP was 172/105 pain 8/10 after nitro x3 per MAR patient BP 115/79 and pain 6/[address] Hermosillo Patient states feeling better. Patient states symptoms have improved. Vital Signs: 09:30 BP 144 / 80; Pulse 78; Resp 20; Temp 98.6(O); Pulse Ox 98% on R/A; Weight 102.06 kg; db Height 5 ft. 1 in. (154.94 cm); Pain 7/10; 10:38 BP 161 / 93; Pulse 79; Resp 18; Pulse Ox 99% ; Pain 5/10; db 11:30 BP 111 / 60; Pulse 73; Resp 16; Pulse Ox 99% on R/A; db 11:57 BP 111 / 60; Pulse 70; Resp 17; Pulse Ox 99% on R/A; jd3 12:10 BP 155 / 108; Pulse 72; db 12:45 BP 172 / 105; Pulse 69; Resp 14; Pulse Ox 99% on R/A; Pain 8/10; db 12:50 BP 165 / 92; Pulse 82; Resp 16; Pulse Ox 97% on R/A; Pain 7/10; db 12:55 BP 128 / 94; Pulse 85; Resp 20; Pulse Ox 98% on R/A; Pain 6/10; db 13:00 BP 115 / 79; Pulse 80; Resp 16; Pulse Ox 97% ; Pain 6/10; db 13:05 BP 126 / 71; Pulse 84; Resp 24; Pulse Ox 98% on R/A; db 13:15 BP 135 / 61; Pulse 77; Resp 16; Pulse Ox 97% on R/A; db 13:30 BP 142 / 78; Pulse 68; Resp 16; Pulse Ox 97% on R/A; db 14:15 BP 116 / 62; Pulse 77; Resp 20 S; Pulse Ox 95% on R/A; db 14:30 Pain 5/10; db 09:30 Body Mass Index 42.51 (102.06 kg, 154.94 cm) db Vitals: 10:38 Cardiac Rhythm Assessment Regular. db ED Course: 09:33 Patient arrived in ED. db 09:33 Tanya Gilman, ABRIL is Primary Nurse. db 09:34 Guero Hermosillo MD is Attending Physician. rt 09:36 Triage completed. db 09:36 Arm band placed on right wrist. Patient placed in an exam room, on a stretcher. db 09:43 Patient has correct armband on for positive identification. Bed in low position. Call db light in reach. Side rails up X 1. Client placed on continuous cardiac and pulse oximetry monitoring. NIBP monitoring applied. Warm blanket given. 09:43 Maintain EMS IV. Dressing intact. Site clean \T\ dry. Gauge \T\ site: 20G right AC. db 09:51 XRAY Chest (1 view) In Process Unspecified. EDMS 12:09 Chico Harmon MD is Hospitalizing Provider. rt 12:44 SARS-COV-2 Antigen Rapid Sent. jd3 12:45 IV is swollen, with fluids not infusing freely, EMS IV infiltrated, IV discontinued and jd3 pressure dressing applied. 12:53 Inserted saline lock: 20 gauge in left antecubital area, using aseptic technique. jd3 14:33 No provider procedures requiring assistance completed. Patient admitted, IV remains in db place. Administered Medications: 10:28 Drug: fentaNYL (PF) 100 mcg Route: IVP; Site: right antecubital; db 12:35 Follow up: Response: No adverse reaction db 10:48 Not Given (Patient Refused): Nitroglycerin 0.4 mg Sublingual once; every five minute if db needed x3 12:27 Drug: fentaNYL (PF) 100 mcg Route: IVP; Site: right antecubital; jd3 12:34 Follow up: Response: No adverse reaction db 12:45 Drug: Nitro-Bid (nitroglycerin) Ointment 2 % 1 inches Route: Transdermal; Site: db anterior chest wall; 14:33 Follow up: Response: No adverse reaction db 12:45 Drug: Nicotine Patch 21 mg/24 hr 1 patches Route: Transdermal; Site: affected area; db 14:33 Follow up: Response: No adverse reaction db 12:45 Drug: Nitroglycerin 0.4 mg Route: Sublingual; db 12:50 Drug: Nitroglycerin 0.4 mg Route: Sublingual; db 12:55 Drug: Nitroglycerin 0.4 mg Route: Sublingual; db 14:33 Follow up: Response: No adverse reaction db 14:34 Follow up: Response: Pain is decreased db Medication: 09:43 VIS not applicable for this client. db Outcome: 12:10 Decision to Hospitalize by Provider. rt 14:33 Admitted to Tele db 14:33 Condition: stable 14:33 Instructed on the need for admit. 15:18 Patient left the ED. db Signatures: Dispatcher [employer] Best Mahoney RN RN jTanya Serrano RN RN db Guero Hermosillo MD MD rt Corrections: (The following items were deleted from the chart) 13:07 13:04 Reassessment: patient complained of chest pain increased after going to restroom. db Patient initial BP was 172/105 pain 8/10 after nitro x3 per MAR patient BP 115/79 and pain 6/10 feeling better Patient states feeling better. Patient states symptoms have improved. db
[2022-06-13] MEDS ORDERED: NITROGLYCERIN 1 GM PKT TD ONE (12:44)
[2022-06-13] MEDS ORDERED: NICOTINE 21 MG/PAT TD ONE (12:44)
[2022-06-13 12:59] LABS: SARS-CoV-2 Antigen Rapid Res Negative (Negative)
[2022-06-13] MEDS ORDERED: CLOPIDOGREL 75 MG TABLET ONE (14:29)
[2022-06-13] MEDS ORDERED: MIDAZOLAM HCL 2 MG/2 ML INJ ONE (14:29)
[2022-06-13] MEDS ORDERED: HEPARIN 5000 UNIT/ML 1 ML VIAL ONE (14:29)
[2022-06-13] MEDS ORDERED: HEPA 1000U/500MLS 2,000 UNIT/1,000 ML BAG IV ONE (14:29)
[2022-06-13] MEDS ORDERED: ASPIRIN 325 MG TAB ONE (14:30)
[2022-06-13] MEDS ORDERED: TICAGRELOR 90 MG TABLET PO ONE (14:30)
[2022-06-13] MEDS ORDERED: HEPARIN 10,000 UNIT/10 ML VIAL IV ONE (14:30)
[2022-06-13] MEDS ORDERED: ATROPINE SULF 1 MG/10 ML SYR IV ONE (14:30)
[2022-06-13] MEDS ORDERED: VERAPAMIL HCL 10 MG/4 ML VIAL IV ONE (14:35)
[2022-06-13 14:54] VITALS: BMI 42.5
--- NOTE | 2022-06-13 15:01 | P.HP ---
Certification for Inpatient Patient admitted to: Inpatient With expected LOS: >2 Midnights Patient will require the following post-hospital care: None Practitioner: I am a practitioner with admitting privileges, knowledge of patient current condition, hospital course, and medical plan of care. Services: Services provided to patient in accordance with Admission requirements found in Title 42 Section 412.3 of the Code of Federal Regulations Patient History Date of Service: 06/13/22 Primary Care Provider: Faustino Reason for admission: Angina History of Present Illness: Patient is an office patient with a history of dm2, htn and nicotine dependence. Yesterday the patient started having chest pain. The patient stated is was substernal, squeezing type pain. She was having relief with rest. Was worsening with walking. Ranged from 5-9. Today. Was having a pain of 9/10 and came to the ER. She has a history of angina in the past. Did have NTG previously. However not currently. The patient did have some relief with the nitrous patch in the ER. She had an elevation of the troponins. Decided to admit for chest pain rule out Allergies egg Allergy (Verified 01/26/14 20:34) unknown latex Allergy (Verified 01/26/14 20:34) unknown eggs Allergy (Uncoded 10/28/14 13:27) Unknown Erythromycin Allergy (Uncoded 05/28/15 16:56) Unknown mycins antibiotics Allergy (Uncoded 12/07/13 03:17) Unknown Home Medications: Atorvastatin Calcium [Lipitor] 40 mg PO DAILY 01/26/14 Esomeprazole Mag Trihydrate [Nexium] 40 mg PO DAILY 01/26/14 Sertraline [Zoloft*] 100 mg PO DAILY 01/26/14 clonazePAM [Klonopin*] 2 mg PO DAILY PRN 01/26/14 hydrOXYzine HCL [Atarax*] 1 tab PO DAILY PRN 01/26/14 levoFLOXacin [Levaquin*] 750 mg PO DAILY 01/26/14 lisinopriL [Prinivil*] 10 mg PO DAILY 01/26/14 traMADol HCL [Ultram*] 50 mg PO Q6HP PRN 01/26/14 - Past Medical/Surgical History Diabetic: No -: PE in 2011 -: sleep apnea -: htn -: depression -: anxiety -: ptsd -: high cholesterol -: arthritis -: "patches on lungs" -: tonsilectomy -: both ankles -: hysterectomy -: bladder lift -: kala november 2012 -: tubal ligation 1988 - Social History Alcohol use: Yes CD- Drugs: No Caffeine use: Yes Review of Systems 10-point ROS is otherwise unremarkable Cardiovascular: Chest Pain Physical Examination - Vital Signs Temperature: 96.8 F Blood Pressure: 119/61 Pulse: 78 Respirations: 20 Pulse Ox (%): 96 - Physical Exam General: Alert, In no apparent distress HEENT: Atraumatic, PERRLA, Mucous membr. moist/pink, EOMI, Sclerae nonicteric Neck: Supple, 2+ carotid pulse no bruit, No LAD, Without JVD or thyroid abnormality Respiratory: Clear to auscultation bilaterally, Normal air movement Cardiovascular: Regular rate/rhythm, Normal S1 S2 Gastrointestinal: Normal bowel sounds, No tenderness Musculoskeletal: No tenderness Integumentary: No rashes Neurological: Normal gait, Normal speech, Normal strength at 5/5 x4 extr, Normal tone, Normal affect Lymphatics: No axilla or inguinal lymphadenopathy - Studies Laboratory Data (last 24 hrs) 06/13/22 10:55: Sodium 137, Potassium 3.5, BUN 14, Creatinine 0.68, Glucose 98, Total Bilirubin 0.2, AST 17, ALT 38, Alkaline Phosphatase 89 06/13/22 10:55: WBC 6.90, Hgb 13.5, Hct 40.2, Plt Count 332 Assessment and Plan - Problems (Diagnosis) (1) Angina pectoris Current Visit: Yes Status: Acute Plan: Will admit the patient and start mointoring serial troponins. Will consult cardiology (2) HTN (hypertension) Current Visit: Yes Status: Acute Plan: She is on amodine-Benzapril 5-40mg po qday. Will restart and adjust as necessary Qualifiers: Hypertension type: primary hypertension Qualified Code(s): I10 - Essential (primary) hypertension (3) DM2 (diabetes mellitus, type 2) Current Visit: Yes Status: Chronic Plan: well controlled with ozempic. Her last a1c was 4.9. Will keep her on a low dose sliding scale Qualifiers: Diabetes mellitus long term care phlebotomist insulin use: without long term care phlebotomist use Diabetes mellitus complication status: without complication Qualified Code(s): E11.9 - Type 2 diabetes mellitus without complications (4) Atrial fibrillation Current Visit: Yes Status: Acute Plan: continue carvedilol Qualifiers: Atrial fibrillation type: paroxysmal Qualified Code(s): I48.0 - Paroxysmal atrial fibrillation (5) Nicotine dependence Current Visit: Yes Status: Acute Plan: discussed smoking cessation. Will give her a nicotine patch in house. If her would be good enough to bring in some nicotine gum/lozenges She can use those as well. Qualifiers: Nicotine product type: cigarettes Substance use status: uncomplicated Qualified Code(s): F17.210 - Nicotine dependence, cigarettes, uncomplicated Discharge Plan: Home Plan to discharge in: 48 Hours - Advance Directives Does patient have a Living Will: No Does patient have a Durable POA for Healthcare: No - Code Status/Comfort Care Code Status Assessed: No Code Status: Full Code Physician Review: Patient Assessed, Agree with Above Assessment and Plan Critical Care: No Time Spent Managing Pts Care (In Minutes): 45
[2022-06-13] MEDS ORDERED: GLUCAGON 1 MG/VIAL IM PRN (15:10)
[2022-06-13] MEDS ORDERED: D50W 25 GM/50 ML SYRINGE IV PRN (15:10)
[2022-06-13] MEDS ORDERED: DEXTROSE 10%-WATER 125 ML IV PRN (15:17)
[2022-06-13] MEDS ORDERED: NA CHLORIDE 0.9% 500 ML ONE (15:18)
[2022-06-13] MEDS ORDERED: HEPA 1000U/500MLS 1,000 UNIT/500 ML BAG IV ONE (15:38)
[2022-06-13] MEDS ORDERED: ACETAMINOPHEN 325 MG TABLET ONE (16:30)
[2022-06-13] MEDS ORDERED: ENOXAPARIN 40 MG/0.4 ML SQ SCH (17:00)
[2022-06-13] MEDS ORDERED: carvediloL 3.125 MG TAB PO SCH (18:00)
--- NOTE | 2022-06-13 18:17 | OP ---
Date of Procedure: 06/13/2022 Surgeon: WALI FREEMAN Procedures Performed: 1.Selective coronary angiogram. 2.Left heart catheterization. 3.PCI of severe proximal to mid LAD stenosis, 99% stenosis, which is the culprit of the MO with TORSTEN 1 flow at the beginning of the procedure. I used a 3.5 x 20 mm Synergy drug-eluting stent proximall y and post dilated using 4.0 x 12 mm NC balloon and then overlapped at the mid segment right after th e diagonal using 3.0 x 12 mm Synergy drug-eluting stent and overlapped area was dilated to 4.0 using the NC balloon and this is the culprit for the MO. Indication: Non-ST elevation myocardial infarction. Access: Right radial artery 6-Portuguese closed with TR band. Complications: None. Bleeding: Less than 50 mL. Total Contrast Used: 95 mL. Anesthesia: Total sedation time was 60 minutes. Used fentanyl and Versed. Description Of Procedure: After risks, benefits, and alternatives were explained, the patient agreed to the procedure and signed informed consent. The patient was brought into the cardiac catheterizat ion laboratory in an emergent manner due to active symptoms with non-ST elevation myocardial infarcti on. Then, we gave fentanyl and Versed in incremental doses to achieve adequate moderate sedation. T hen, I accessed right radial artery using pediatric micropuncture kit, placed a 6-Portuguese Slender kraft th. I took a 5-Portuguese [place] 4.0 catheter into the aortic root, engaged left main and the right coron luis artery, took standard views. Catheter was pushed over the wire into the LV, measured the LVEDP, pullback did not record any gradient. Then, we gave systemic heparin to assure ACT level above 250 t hroughout the procedure. Gave 180 mg of Brilinta and 325 mg aspirin. I then took a 6-Portuguese EBU3.5 guide into the aortic root, engaged left main and took short Run-Through wire into the LAD past the r estenosis. The restenosis was pre-dilated using 3.0 Compliant balloon to high pressure and establish ed TORSTEN-3 flow immediately after ballooning the lesion. Subsequently, I took a 3.5 x 20 mm Synergy d rug-eluting stent from the proximal LAD to the mid and post dilated the area of stenosis using 4.0 x 12 mm NC balloon and then there was another lesion distal to the stent in the mid LAD right after elvia gonal 1 branch stenosis. Then, I used a 3.0 x 12 mm Synergy drug-eluting stent, overlapped with the first one and post dilated the overlapped area. Excellent angiographic results with TORSTEN-3 flow at t he end of the procedure. Then, I removed the wire and took final angiogram, which was satisfactory. I removed the catheter, the guide, and the sheath and placed TR band with good hemostasis. Findings: 1.Left main; large, normal. 2.LAD; proximal 99% stenosis with TORSTEN-1 flow before PCI and then a 70% stenosis status post success ful PCI as above with 0% stenosis and TORSTEN-3 flow at the end of procedure. Diagonal branches appear clear of disease and the rest of the LAD is with mild luminal irregularities. 3.Left circumflex; very large and dominant artery with mid diffuse 50% to 60%, but still with very l arge lumen and then distal 50% stenosis. OM1 branch is about 2 mm vessel with diffuse 30% stenosis. 4.RCA; small, nondominant with no significant disease. 5.LVEDP normal at 7 mmHg. Conclusion: 1.Severe proximal to mid LAD stenosis, status post successful PCI and this is the culprit of MO. Es tablished TORSTEN-3 flow at the end of procedure and 0% residual stenosis. 2.Moderate coronary artery disease of the left circumflex, which is a dominant artery. That will be left to medical management and stress test as an outpatient. Plan: Aspirin, Brilinta, and high-dose statin and keep her on 24 hours of heparin until tomorrow aft erndottie 2 hours after TR band removal and tomorrow the patient can be released and follow up with me a s an outpatient. We are going to obtain a stress test and an echo to evaluate the left circumflex artery and this is to be done as an outpatient. SR/MODL Voice ID: [id number] Report ID: [id number]
--- NOTE | 2022-06-13 18:54 | CON ---
Date of Consultation: 06/13/2022 Reason For Consultation: Chest pain. History Of Present Illness: This is a 56-year-old female, history of diabetes, hypertension, dyslipi demia, active smoker about 1 pack per day. Comes in with chest heaviness and radiates to her jaw, th roat, and left upper extremities along with shortness of breath with minimal activities even walking short distance, started yesterday last night and it has been happening on and off since. Resting in bed, now she was chest pain free. Past Medical History: As outlined above in the HPI. Medications: Refer to reconciliation sheet for detailed list. Allergies: ERYTHROMYCIN AND ANTIBIOTICS. Family History: No premature coronary artery disease or cancer. Social History: She is an active smoker, half to 1 pack per day. Does not drink or use any drugs. Review of Systems: All systems reviewed and they were negative except what mentioned in HPI. Physical Examination: Vital signs: Reviewed. Head and Neck: Pupils are equal, reactive to light. Intact eye movements. No JVD. No cervical lym phadenopathy. Neck is supple. Thyroid is not enlarged. Lungs: Clear to auscultation bilaterally. No rhonchi, wheezing, or crackles. No accessory muscle u se. Heart: Regular rate and rhythm. No extra sounds. Abdomen: Soft, nontender. Bowel sounds positive. No organomegaly. No masses or hernia. No rigidi ty or rebound. Extremities: No edema, clubbing, or cyanosis. Intact pulses. Skin: No rash. Neurologic: Alert, awake, oriented x3. No acute focal deficits appreciated. Investigations: BUN 14, creatinine 0.68. Troponin 73. Hemoglobin is 13.5. Assessment And Recommendations: 1.Non-ST elevation myocardial infarction, very typical anginal symptoms that started yesterday and i s happening with minimal exertion suggestive of acute coronary syndrome. Keep n.p.o., send to cath l ab for urgent coronary angiogram. The patient received a bolus of heparin in the emergency room. 2.Hypertension. Blood pressure is controlled. 3.Diabetes. Sugars to be checked 3 times a day. Cover with regular insulin sliding scale. SR/MODL Voice ID: [id number] Report ID: [id number]
[2022-06-13] MEDS ORDERED: clonazePAM 1 MG TAB PO PRN (19:28)
[2022-06-13] MEDS: INSULIN -REGULAR HUMAN 50 UNIT/0.5 ML ML SQ SCH (21:00)
[2022-06-13] MEDS ORDERED: NA CHLORIDE 0.9% 250 ML IV SCH (21:00)
[2022-06-13] MEDS ORDERED: NA CHLORIDE 0.9% 150 ML IV SCH (21:00)
[2022-06-13] MEDS ORDERED: NITROGLYCERIN 0.4 MG/TAB SL PRN (21:14)
[2022-06-13] MEDS ORDERED: ACETAMINOPHEN 325 MG TABLET PO PRN (21:14)
[2022-06-13] MEDS ORDERED: HEPARIN/D5W 25,000 UNIT/500 ML BAG IV SCH (22:00)
[2022-06-13] MEDS ORDERED: NA CHLORIDE 0.9% 250 ML ONE (22:23)
[2022-06-13] MEDS: TICAGRELOR 90 MG TABLET PO SCH (22:31)
[2022-06-13 22:43] LABS: Protime INR 1.02
[2022-06-14 06:17] LABS: Hematocrit 40.4 % (36.0-45.0); Lymphocytes % 42.1 % (15.3-44.8); MCV 83.4 fL (80-100); MPV 7.5 fL (7.6-11.3); RBC Red Blood Cell Count 4.84 M/uL (3.86-4.86)
[2022-06-14] MEDS ORDERED: PANTOPRAZOLE 40MG TABLET PO SCH (06:30)
[2022-06-14 06:39] LABS: Albumin 3.1 g/dL (3.4-5.0); Bilirubin Total 0.4 mg/dL (0.2-1.0); Potassium 3.3 mmol/L (3.5-5.1); Thyroid Stimulating Hormone 3.56 uIU/mL (0.360-3.740)
[2022-06-14] MEDS: INSULIN -REGULAR HUMAN 50 UNIT/0.5 ML ML SQ SCH (07:30)
[2022-06-14] MEDS: TICAGRELOR 90 MG TABLET PO SCH (08:38)
[2022-06-14] MEDS ORDERED: SERTRALINE HCL 100 MG TAB PO SCH (09:00)
[2022-06-14] MEDS ORDERED: BENAZEPRIL 20 MG TAB PO SCH (09:00)
[2022-06-14] MEDS ORDERED: ASPIRIN EC 81 MG TAB PO SCH (09:00)
[2022-06-14] MEDS ORDERED: ATORVASTATIN 40 MG TAB PO SCH (09:00)
[2022-06-14] MEDS ORDERED: AMLODIPINE 5 MG TAB PO SCH (09:00)
--- NOTE | 2022-06-14 10:16 | P.DS ---
Admission Date: 06/13/22 Discharge Date: 06/14/22 Primary Care Provider: Faustino Disposition: ROUTINE DISCHARGE Discharge Condition: GOOD Reason for Admission: Angina - Problems (1) Angina pectoris Current Visit: Yes Status: Acute (2) HTN (hypertension) Current Visit: Yes Status: Acute Qualifiers: Hypertension type: primary hypertension Qualified Code(s): I10 - Essential (primary) hypertension (3) DM2 (diabetes mellitus, type 2) Current Visit: Yes Status: Chronic Qualifiers: Diabetes mellitus care home insulin use: without care home use Diabetes mellitus complication status: without complication Qualified Code(s): E11.9 - Type 2 diabetes mellitus without complications (4) Atrial fibrillation Current Visit: Yes Status: Acute Qualifiers: Atrial fibrillation type: paroxysmal Qualified Code(s): I48.0 - Paroxysmal atrial fibrillation (5) Nicotine dependence Current Visit: Yes Status: Acute Qualifiers: Nicotine product type: cigarettes Substance use status: uncomplicated Qualified Code(s): F17.210 - Nicotine dependence, cigarettes, uncomplicated Brief History of Present Illness: Patient is an office patient with a history of dm2, htn and nicotine dependence. Yesterday the patient started having chest pain. The patient stated is was substernal, squeezing type pain. She was having relief with rest. Was worsening with walking. Ranged from 5-9. Today. Was having a pain of 9/10 and came to the ER. She has a history of angina in the past. Did have NTG previously. However not currently. The patient did have some relief with the nitrous patch in the ER. She had an elevation of the troponins. Decided to admit for chest pain rule out Hospital Course: Patient was admitted taken immediately to the laborer [facility] salv[facility]. had a stent placed to the LAD. She has no chest pain this morning. Will be discharged on high dose atorvastatin and brillanta. The patient's was in the room with her permission. We discussed smoking cessation with the family. She smokes 1 1/2ppd. this would be the best mortality benefit. Smoking cessation. Discussed visiting smokefree.gov, setting a quit date, weaning and nicotine replacement were discussed. Spent a total of 10 min on smoking cessation alone. Total time spent with the patient was 40min Vital Signs/Physical Exam: Temp Pulse Resp BP Pulse Ox 97.9 F 78 18 132/71 97 06/14/22 08:00 06/14/22 08:38 06/14/22 08:00 06/14/22 08:38 06/14/22 08:00 General: Alert, In no apparent distress HEENT: Atraumatic, PERRLA, EOMI Neck: Supple, JVD not distended Respiratory: Clear to auscultation bilaterally, Normal air movement Cardiovascular: Regular rate/rhythm, Normal S1 S2 Gastrointestinal: Normal bowel sounds, No tenderness Musculoskeletal: No tenderness Integumentary: No rashes Neurological: Normal speech, Normal tone, Normal affect Lymphatics: No axilla or inguinal lymphadenopathy Laboratory Data at Discharge: WBC 7.20 K/uL (4.3-10.9) 06/14/22 05:53 Hgb 13.5 g/dL (12.0-15.0) 06/14/22 05:53 Hct 40.4 % (36.0-45.0) 06/14/22 05:53 Plt Count 294 K/uL (152-406) 06/14/22 05:53 PT 11.2 SECONDS (9.5-12.5) 06/13/22 22:13 INR 1.02 06/13/22 22:13 APTT 51.7 SECONDS (24.3-36.9) H 06/14/22 09:15 Sodium 138 mmol/L (136-145) 06/14/22 05:53 Potassium 3.3 mmol/L (3.5-5.1) L 06/14/22 05:53 BUN 14 mg/dL (7-18) 06/14/22 05:53 Creatinine 0.72 mg/dL (0.55-1.3) 06/14/22 05:53 Glucose 105 mg/dL (74-106) 06/14/22 05:53 Total Bilirubin 0.4 mg/dL (0.2-1.0) 06/14/22 05:53 AST 21 U/L (15-37) 06/14/22 05:53 ALT 40 U/L (12-78) 06/14/22 05:53 Alkaline Phosphatase 96 U/L (45-117) 06/14/22 05:53 Triglycerides 139 mg/dL (<150) 06/14/22 05:53 Cholesterol 180 mg/dL (<200) 06/14/22 05:53 HDL Cholesterol 54 mg/dL (40-60) 06/14/22 05:53 Cholesterol/HDL Ratio 3.33 06/14/22 05:53 Home Medications: Atorvastatin Calcium [Lipitor] 40 mg PO DAILY 01/26/14 Sertraline [Zoloft*] 200 mg PO DAILY 01/26/14 clonazePAM [Klonopin*] 2 mg PO DAILY PRN 01/26/14 hydrOXYzine HCL [Atarax*] 1 tab PO DAILY PRN 01/26/14 Acetaminophen with Codeine [Acetaminophen-Cod #4 Tablet] 1 each PO Q8HR PRN 06/14/22 Amlodipine Besylate/Benazepril [Amlodipine-Benazepril 5-40 mg] 1 cap PO DAILY 06/14/22 Atorvastatin Calcium [Lipitor] 80 mg PO DAILY 90 Days #90 tab 06/14/22 Carvedilol [Coreg] 3.125 mg PO DAILY 06/14/22 Gabapentin 600 mg PO BID 06/14/22 Melatonin 10 mg PO DAILY 06/14/22 Naloxegol Oxalate [Movantik] 25 mg PO DAILY 06/14/22 Ozempic 0.5 mg SQ EVERY 7TH DAY 06/14/22 Ticagrelor [Brilinta*] 90 mg PO BID 90 Days #180 tab 06/14/22 Tizanidine HCl 4 mg PO PRN PRN 06/14/22 New Medications: Ticagrelor [Brilinta*] 90 mg PO BID 90 Days #180 tab Atorvastatin Calcium [Lipitor] 80 mg PO DAILY 90 Days #90 tab Diet: ADA Activity: Ad malissa Followup: Jordin Gongora MD [ACTIVE - CAN ADMIT] - 1 Week () Chico Harmon MD [ACTIVE - CAN ADMIT] - 1 Week Physician Review: Patient Assessed, Agree with Above Assessment and Plan Time spent managing pt's care (in minutes): 40
[2022-06-14 11:16] VITALS: O2SAT 95
--- NOTE | 2022-06-14 11:37 | EKG ---
Test Date: 2022-06-13 Test Time: 09:54:55 V Belt Builder: MANUEL MEASUREMENT RESULTS: Intervals: Rate: 74 WA: 158 QRSD: 82 QT: 376 QTc: 417 [place]: P: 11 WA: 158 QRS: 53 T: 37 INTERPRETIVE STATEMENTS: Normal sinus rhythm Normal ECG Compared to ECG 12/02/2021 06:14:47 No significant changes Electronically Signed On 06-14-22 11:34:41 AIX ADMINISTRATOR by Lon Maldonado
[2022-06-14 12:57] VITALS: BP 143/78; TEMP 98.1
--- NOTE | 2022-06-16 18:02 | PN ---
The patient admitted to Dr. Harmon with chest pain, elevated troponin. Has a history of diabetes, hyp ertension, dyslipidemia, and depression. Otherwise, an LAD stent. Overnight, she has done well with out any complaints. Her vital signs are stable. She is afebrile. She is in sinus rhythm. Ms. Nanci pérez can go home on her home medications. In addition to that, she will be on Brilinta. Lipitor will be increased to 80 mg. We will see her in the office soon. FORTUNATO/EULA Voice ID: [id number] Report ID: [id number]
== END 2022-06-14 12:11 | disposition home or self-care (01) ==
LOC: ER 09:25 → ERHOLD 12:07 → 2ND 15:20 → INTOOBSV 06-14 10:21 → OBSVTOIN 06-14 10:21
PROVIDERS: ADMIT Internal Medicine; ATTEND Internal Medicine
DX: I21.4 Non-ST elevation (NSTEMI) myocardial infarction (principal); I25.119 Atherosclerotic heart disease of native coronary artery with unspecified angina pectoris; I10 Essential (primary) hypertension; E78.5 Hyperlipidemia, unspecified; I48.0 Paroxysmal atrial fibrillation; E11.9 Type 2 diabetes mellitus without complications; E78.00 Pure hypercholesterolemia, unspecified; G47.30 Sleep apnea, unspecified; F32.A Depression, unspecified; F41.9 Anxiety disorder, unspecified; F43.10 Post-traumatic stress disorder, unspecified; M19.90 Unspecified osteoarthritis, unspecified site; F17.210 Nicotine dependence, cigarettes, uncomplicated; Z71.6 Tobacco abuse counseling; Z86.711 Personal history of pulmonary embolism; Z79.899 Other long term (current) drug therapy; Z88.1 Allergy status to other antibiotic agents; Z88.3 Allergy status to other anti-infective agents; Z91.012 Allergy to eggs; Z91.040 Latex allergy status; Z20.822 Contact with and (suspected) exposure to COVID-19; Z90.710 Acquired absence of both cervix and uterus; Z90.49 Acquired absence of other specified parts of digestive tract
CPT/HCPCS: 93005; 85025 ×2; 36415; 85610; 80061; 82947 ×2; 85347 ×2; 85730 ×4; 84443; 83036; 84484; 80053 ×2; 83880; 71045; 92928; 93458; 96374; 99285; 87811; C1893; Q9967; C1725; J1644 ×4; J2250; J3010 ×3; G0378 ×4; J7050; J7040; J0461

== ENCOUNTER 2023-02-21 10:30 | Day surgery (SDC) | payer BC ==
--- NOTE | 2023-02-20 10:43 | RAD REPORT ---
EXAM DESCRIPTION: RAD - Chest Pa And Lat (2 Views) - 02/20/2023 10:34 am CLINICAL HISTORY: pre procedure Chest pain. COMPARISON: Chest Single View dated 06/13/2022; Chest Single View dated 12/02/2021; Chest Single View dated 10/22/2019; CHEST PA AND LAT 2 VIEW dated 06/10/2015 TECHNIQUE: PA and lateral views of the chest were obtained. FINDINGS: The lungs are hyperexpanded compatible with COPD. The heart is upper limit of normal in si ze. No fracture or aggressive bony process. IMPRESSION: COPD without acute process identified. The USPSTF recommends annual screening for lung cancer with low-dose CT (LDCT) in adults aged 50 to 80 years who have a 20 pack-year smoking history and currently smoke or have quit within the past 15 years.
[2023-02-20 11:32] LABS: Absolute Lymphocytes (CBC) 2.9 K/uL (0.7-4.9); Hematocrit 41.8 % (36.0-45.0); Lymphocytes % 36.1 % (15.3-44.8); MCV 86.8 fL (80-100); MPV 8.6 fL (7.6-11.3); Platelets 280 thou/uL (152-406); RBC Red Blood Cell Count 4.82 M/uL (3.86-4.86)
[2023-02-20 11:38] LABS: Protime INR 0.95
[2023-02-20 11:46] LABS: Potassium 3.8 mEq/L (3.5-5.1)
[~2023-02-21 10:30] MED LIST: ASPIRIN 325 MG TAB ONE; ATROPINE SULF 1 MG/10 ML SYR IV ONE; CLOPIDOGREL 75 MG TABLET ONE; FENTANYL CITR 100 MCG/2 ML ONE; HEPA 1000U/500MLS 2,000 UNIT/1,000 ML BAG IV ONE; HEPARIN 10,000 UNIT/10 ML VIAL IV ONE; HEPARIN 5000 UNIT/ML 1 ML VIAL ONE; LIDOCAINE 1% 20 ML MDV ONE; MIDAZOLAM HCL 2 MG/2 ML INJ ONE; TICAGRELOR 90 MG TABLET PO ONE; VERAPAMIL HCL 10 MG/4 ML VIAL IV ONE
[2023-02-21] MEDS ORDERED: NA CHLORIDE 0.9% 500 ML ONE (11:30)
[2023-02-21] MEDS ORDERED: NITROGLYCERIN 0.4 MG/TAB SL ONE (14:00)
[2023-02-21] MEDS ORDERED: ONDANSETRON 4 MG/2 ML VIAL ONE (14:03)
[2023-02-21] MEDS ORDERED: FAMOTIDINE 20 MG/2 ML VIAL IV ONE ×2 (15:15→15:24)
[2023-02-21 18:22] VITALS: TEMP 97.5
[2023-02-21 19:57] VITALS: BP 116/57; O2SAT 96
== END 2023-02-21 19:00 | disposition home or self-care (01) ==
LOC: CCL 10:30
PROVIDERS: ATTEND Internal Medicine
DX: I25.110 Atherosclerotic heart disease of native coronary artery with unstable angina pectoris (principal); I65.29 Occlusion and stenosis of unspecified carotid artery; I10 Essential (primary) hypertension; E78.5 Hyperlipidemia, unspecified; E11.9 Type 2 diabetes mellitus without complications; I25.2 Old myocardial infarction; F17.210 Nicotine dependence, cigarettes, uncomplicated; Z79.82 Long term (current) use of aspirin; Z79.02 Long term (current) use of antithrombotics/antiplatelets; Z79.4 Long term (current) use of insulin; Z79.899 Other long term (current) drug therapy; Z88.3 Allergy status to other anti-infective agents; Z91.012 Allergy to eggs; Z91.040 Latex allergy status
CPT/HCPCS: 85025; 80048; 36415; 85610; 82947; 85347; 85730; 71046; 92928; 93458; 76937; C1893; Q9967; C1725; J1644; J2001; J2250; J3010; J2405; J7040; J0461

== ENCOUNTER 2023-11-06 17:08 | Emergency (ER) | payer BC ==
--- OUTSIDE RECORDS SUMMARY | 2023-11-06 17:10 | XMS REPORT | Continuity of Care Document ---
Author Name Unknown Address [address] [place] [address] [facility] thconnect Address [address] [place] [address] Care Team Providers Care Spinner Operator Name Role Phone ANNALISE RIBERA Primary Care Physician UnavailHUSAM Youssef Attending Clinician Unavailable KAIA BARRAGAN Attending Clinician Unavailable Kaia Barragan MD Attending Clinician LAURA ZHU Attending Clinician LAURA Arzate Attending Clinician MARY Keith Attending Clinician Unavailable MARY VILLARREAL Attending Clinician Unavailable Doctor Unassigned, Oval Attending Clinician U navailable LION Attending Clinician Unavailable LION Admitting Clinician Unavailable Payers Payer Name Policy Type Policy Number Effective Date Expirati on Date Source [facility] [id number] 2022 00:00:00 Problems Condition Name Condition Details Condition Category Status Onset Date Resolution Date Last Treatment Date Treating Clinician Comments Source Chronic depression Chronic depression Disease Active 07-25 00:00: 00 [facility] Essential hypertensi on Essential hypertensi on Disease Active 07-25 00:00: 00 [facility] Hyperlipid emia Hyperlipid emia Disease Active 07-25 00:00: 00 [facility] Neuropathy Neuropathy Disease Active - 00:00: 00 [facility] Obese Obese Disease Active 07-25 00:00: 00 [facility] Low back pain Low back pain Disease Active 1-03 00:00: 00 [facility] Allergies, Adverse Reactions, Alerts Allergy Name Allergy Type Status Severity Reaction(s) Onset Date Inactive Date Treating Clinician Comments Source AZITHROM YCIN (BULK) DRUG Active N/V 03-30 00:00: 00 [facility] LATEX DRUG INGREDI Active Unknown-Cmnt 03-30 00:00: 00 [facility] EGG DRUG INGREDI Active Unknown-Cmnt 03-30 00:00: 00 [facility] Azithrom ycin (Bulk) Propensi ty to adverse reaction s Active Nausea and/or Vomiting 03-30 00:00: 00 [facility] Egg Propensi ty to adverse reaction s Active Unknown - See comments 03-30 00:00: 00 [facility] Latex Propensi ty to adverse reaction s Active Unknown - See comments 03-30 00:00: 00 [facility] NO KNOWN ALLERGIE S Drug Class Active [facility] Social History Social Habit Start Date Stop Date Quantity Comments Source Gender identity [facility] Sexual orientation [facility] History of tobacco use Cigarette Smoker [facility] Alcohol intake 2023-05-16 00:00:00 2023-05-16 00:00:00 Ex-drinker (finding) [facility] History of Social function 2023-05-16 00:00:00 2023-05-16 00:00:00 [facility] Tobacco use and exposure 2023-03-30 00:00:00 2023-03-30 00:00:00 Smokeless tobacco non-user [facility] Sex Assigned At 1965 00:00:00 1965 00:00:00 [facility] Smoking Status Start Date Stop Date Source Tobacco smoking consumption unknown [facility] Smokes tobacco daily 2023-03-30 00:00:00 [facility] Medications Ordered Medication Name Filled Medication Name Start Date Stop Date Current Medication? Ordering Clinician Indication Dosage Frequency Signature (SIG) Comments Components Source Nitrofurant oin&Nit. Macrocryst 100 mg capsule 2022-07 0 00:00: 00 Yes [id number] 100mg Take 1 capsule by mouth in the morning and 1 capsule in the evening. [facility] ciprofloxac in HCl 500 mg tablet 04-02 00:00: 00 05-16 00:00 :00 No [id number] 500mg Take 1 tablet by mouth every 12 (twelve) hours. [facility] clopidogreL 75 mg tablet 03-30 09:35: 59 Yes 75mg Take 1 tablet by mouth in the morning. [facility] aspirin 81 mg Cap 03-30 09:35: 59 Yes Take by mouth. [facility] sertraline 200 mg Cap 03-30 09:35: 59 Yes Take by mouth. [facility] hydrOXYzine 25 mg tablet 03-30 09:35: 59 Yes 25mg Take 1 tablet by mouth every 6 (six) hours. [facility] tiZANidine 4 mg capsule 03-30 09:35: 59 Yes 4mg Take 1 capsule by mouth in the morning and 1 capsule at noon and 1 capsule in the evening. [facility] melatonin 10 mg Cap 03-30 09:35: 59 Yes Take by mouth. [facility] orphenadrin e 100 mg SR tablet 03-28 00:00: 00 Yes [facility] OZEMPIC 0.25 mg or 0.5 mg (2 mg/3 mL) PnIj 03-20 00:00: 00 Yes INJECT 0.5MG SUBCUTANEO USLY ONCE WEEKLY [facility] amLODIPine- benazepriL 5-40 mg per capsule 02-26 00:00: 00 Yes 1{capsu le} Take 1 capsule by mouth in the morning. [facility] gabapentin 600 mg tablet 02-11 00:00: 00 Yes 600mg Take 1 tablet by mouth in the morning and 1 tablet in the evening. [facility] acetaminoph en-codeine 300-60 mg tablet 01-31 00:00: 00 Yes 1{tbl} Take 1 tablet by mouth every 8 (eight) hours as needed. [facility] atorvastati n 80 mg tablet 01-28 00:00: 00 Yes 80mg Take 1 tablet by mouth in the morning. [facility] Vital Signs Vital Name Observation Time Observation Value Comments S ource Systolic blood pressure 2023-05-16 19:38:00 136 mm[Hg] [facility] Diastolic blood pressure 2023-05-16 19:38:00 81 mm[Hg] [facility] Heart rate 2023-05-16 19:38:00 92 /min [facility] Respiratory rate 2023-05-16 19:38:00 18 /min [facility] Body height 2023-05-16 19:38:00 154.9 cm [facility] Body weight 2023-05-16 19:38:00 101.606 kg [facility] BMI 2023-05-16 19:38:00 42.32 kg/m2 [facility] Systolic blood pressure 2023-03-30 14:20:00 100 mm[Hg] [facility] Diastolic blood pressure 2023-03-30 14:20:00 67 mm[Hg] [facility] Heart rate 2023-03-30 14:20:00 91 /min [facility] Body temperature 2023-03-30 14:20:00 36.72 Alexa [facility] Respiratory rate 2023-03-30 14:20:00 18 /min [facility] Body height 2023-03-30 14:20:00 154.9 cm [facility] Body weight 2023-03-30 14:20:00 101.56 kg [facility] BMI 2023-03-30 14:20:00 42.31 kg/m2 [facility] Procedures Procedure Date / Time Performed Performing Clinicia n Source POCT URINALYSIS W/O SPECIFIC GRAVITY 2023-05-16 00:00:00 Kaia Barragan [facility] ASSIGNMENT OF BENEFITS 2023-03-30 14:03:32 Docto r Unassigned, Oval [facility] POCT URINALYSIS W/O SPECIFIC GRAVITY 2023-03-30 00:00:00 Laura Zhu [facility] Encounters Start Date/Time End Date/Time Encounter Type Admission Type Attending [facility] Care Facility Care Department Encounter ID Source 2023-05-16 14:30:00 2023-05-16 15:01:04 Outpatient R KAIA BARRAGAN [facility] [id number] [facility] 2023-05-16 14:30:00 2023-05-16 15:01:04 Office Visit Kaia Barragan [facility] 1..840.114 350.1.13.10 4.2.7.2.686 [id number] 134 [id number] [facility] 2023-04-20 14:00:00 2023-04-20 14:00:00 Outpatient R LAURA SINGH MARISOL [facility] [id number] [facility] 2023-04-19 00:00:00 2023-04-19 00:00:00 Telephone Oriana Singhsol [facility] 1..840.114 350.1.13.10 4.2.7.2.686 [id number] 134 [id number] [facility] 2023-04-18 10:00:00 2023-04-18 10:00:00 Outpatient R MARY VILLARREAL ELISHA [facility] [id number] [facility] 2023-04-05 00:00:00 2023-04-05 00:00:00 Letter (Out) Oriana Singhsol [facility] 1..840.114 350.1.13.10 4.2.7.2.686 [id number] 134 [id number] [facility] 2023-04-04 10:00:00 2023-04-04 10:00:00 Outpatient MARY JURADO ELISHA [facility] [id number] [facility] 2023-04-02 00:00:00 2023-04-02 00:00:00 Case Management Oriana Singhsol [facility] 1.2.840.114 350.1.13.10 4.2.7.2.686 [id number] 134 [id number] [facility] 2023-04-02 00:00:00 2023-04-02 00:00:00 Telephone Israel azar [facility] 1.2.840.114 350.1.13.10 4.2.7.2.686 [id number] 134 [id number] [facility] 2023-03-30 09:00:00 2023-03-30 09:40:59 Outpatient R LAURA SINGH [facility] [id number] [facility] 2023-03-30 09:00:00 2023-03-30 09:40:59 Office Visit Israel azar Laura [facility] 1.2.840.114 350.1.13.10 4.2.7.2.686 [id number] 134 [id number] [facility] 2023-03-30 00:00:00 2023-03-30 00:00:00 Orders Only Doctor Unassigned, Oval [facility] 1.2.840.114 350.1.13.10 4.2.7.2.686 [id number] [facility] 2022-01-31 10:41:00 2022-01-31 10:41:00 Outpatient DAVONTE MIGUEL [facility] [id number] Sidney samson [facility] Program Results Test Description Test Time Test Comments Results Result Co mments Source [facility]/O SPECIFIC [id number] 19:28:00* Test Item Value Reference Range Interpretation Comme nts POCT PH U (test code = 3254) 5 mg/dl 5-8 POCT U LEUK EST (test code = 3263) Negative Negative - Negative POCT U NIT (test code = 3262) Negative Negative - Negati ve POCT U PROT (test code = 3259) Negative Negative - Negat dolly POCT U GLU (test code = 3256) Negative Negative - Negati ve POCT U KETONE (test code = 3258) Negative Negative - Neg ative POCT U BLD (test code = 3257) Negative Negative - Negati ve [facility] W/O SPECIFIC [id number] 14:24:00* Test Item Value Reference Range Interpretation Comme nts POCT PH U (test code = 3254) 8 mg/dl 5-8 POCT U LEUK EST (test code = 3263) + Negative - Negative POCT U NIT (test code = 3262) + Negative - Negati ve POCT U PROT (test code = 3259) negative Negative - Negat dolly POCT U GLU (test code = 3256) negative Negative - Negati ve POCT U KETONE (test code = 3258) negative Negative - Neg ative POCT U BLD (test code = 3257) negative Negative - Negati ve [facility] W/O SPECIFIC [id number] 14:24:00* Test Item Value Reference Range Interpretation Comme nts POCT PH U (test code = 3254) 8 mg/dl 5-8 POCT U LEUK EST (test code = 3263) + Negative - Negative POCT U NIT (test code = 3262) + Negative - Negati ve POCT U PROT (test code = 3259) negative Negative - Negat dolly POCT U GLU (test code = 3256) negative Negative - Negati ve POCT U KETONE (test code = 3258) negative Negative - Neg ative POCT U BLD (test code = 3257) negative Negative - Negati ve [facility] Notes Date/Time Note Provider Source 2023-04-02 14:48:10 [id number]+[id number] [id number] [id number]+em5TGS099 14-04-114:48:10 Name and verified. Patient informed of lab results and new Rx sent to pharmacy. Patient verbalized understanding. [id number] encounter [id number]:48:19Telephon e encounter NoteTXT1.2.840.613092.1.13.104.2. 7.2.279639|[id number] for patient [id number] L Lara [address] Xc[id number] 078BALFLYFRVTSPYPYBGQKNWI2752-70- 11T14:48:191.2.840.955918.1.72.3. 15|1.2.840.090369.1.13.104.2.7.2. [id number] Leticia Tena [facility] 2023-04-02 14:33:19 BYllU7aSUNwb/8MjkN2C v0uvuqxOeD3Ew 7K6P7t08Q6ycFZF6vxRfcvHRJTgHJIA09 14-04-114:33:19 Patient is calling back in regards to her lab results. 18214-9Atgejwoke encounter AqzuAS5451-70-03S64:33:32Telephon e encounter NoteTXT1.2.840.073756.1.13.104.2. 7.2.341274|[id number] for patient [id number] y [address] Hw[id number] 958ZPQWSIRBHUGGNRBNZFDEES9345-43- 11T14:33:321.2.840.467061.1.72.3. 15|1.2.840.987415.1.13.104.2.7.2. [id number] Dominique [facility]"
[2023-11-06] MEDS ORDERED: ASPIRIN 81 MG CHEWABLE TABLET ONE (17:21)
[2023-11-06 17:54] LABS: Absolute Basophils 0.1 K/uL (0-0.5); Absolute Eosinophils 0.2 K/uL (0-0.5); Absolute Lymphocytes (CBC) 2.4 K/uL (0.7-4.9); Absolute Monocytes 0.6 K/uL (0.1-1.3); Absolute Neutrophil 4.6 K/uL (1.8-8.0); Basophils % 1.1 % (0-1.3); Eosinophils % 2.3 % (0-4.4); Hematocrit 43.6 % (36.0-45.0); Hemoglobin 14.3 g/dL (12.0-15.0); Lymphocytes % 30.3 % (15.3-44.8); MCH 28.4 pg (27.0-35.0); MCHC 32.7 g/dL (32.0-36.0); MCV 86.8 fL (80-100); MPV 8.3 fL (7.6-11.3); Neutrophils % 58.3 % (41.7-73.7); Platelets 346 thou/uL (152-406); RBC Red Blood Cell Count 5.02 M/uL (3.86-4.86); Red Cell Distribution Width 15.4 % (12.1-15.2)
[2023-11-06 17:56] LABS: PT Prothrombin Time 10.5 SECONDS (9.5-12.5); Protime INR 0.95
--- NOTE | 2023-11-06 18:18 | RAD REPORT ---
EXAM DESCRIPTION: RADChest Single View11/06/2023 5:52 pm CLINICAL HISTORY: CHEST PAIN COMPARISON: Chest Pa And Lat (2 Views) dated 02/20/2023; Chest Single View dated 06/13/2022; Chest Sin gle View dated 12/02/2021; Chest Single View dated 10/22/2019 TECHNIQUE: Portable AP view of the chest. FINDINGS: The lungs are clear. No pneumothorax or effusion. The cardiomediastinal contours are unre markable. IMPRESSION: No acute cardiopulmonary process.
[2023-11-06 18:19] LABS: Anion Gap 8.7 mEq/L (5.0-15.0); BUN Blood Urea Nitrogen 11 mg/dL (7-18); Bicarbonate 26 mEq/L (21-32); Glomerular Filtration Rate 83 ml/min (=/>90); Glucose Level 119 mg/dL (74-106); NT PRO-BNP 18 pg/mL (<125); Sodium Level 135 mEq/L (136-145)
[2023-11-06 18:22] LABS: Potassium 4.7 mEq/L (3.5-5.1); Troponin High Sensitivity < 3.0 pg/mL (<58.9)
--- NOTE | 2023-11-06 18:46 | EDPHYS ---
Physician Documentation [facility] Name: Lisa Valentino Age: 58 yrs Sex: Female : 1965 Arrival Date: 11/06/2023 Time: 17:08 Bed 18 Private MD: ED Physician Mello Yepez HPI: 11/05 17:20 This 58 yrs old Female presents to ER via Ambulatory with complaints of Chest Pain. ec2 17:20 Patient arrives today due to complaints of chest pain. Patient complaining left-sided ec2 chest pain, nonradiating, intermittent, worsened with activity. Some occasional difficulty breathing. Previous history of ACS, on Plavix.. Historical: - Allergies: 17:15 Dilaudid; as6 17:15 egg; as6 17:15 Latex; as6 17:15 Mycin antibiotics; as6 - PMHx: 17:15 Myocardial infarction; Diabetes mellitus; Hypertensive disorder; as6 - PSHx: 17:15 Stented artery; Total abdominal hysterectomy; Cholecystectomy; as6 - Immunization history:: Adult Immunizations up to date. - Infectious Disease History:: Denies. - Social history:: Smoking status: Patient reports the use of cigarette tobacco products, smokes one pack cigarettes per day. ROS: 17:20 Constitutional: as per hpi ec2 Exam: 17:20 Constitutional: GEN: NAD Head: atraumatic Eyes: EOMI Ears: External ears are ec2 normal. CV: regular rate LUNGS: no respiratory distress ABD: non-distended SKIN: no evidence of rashes MSK: no evidence of trauma NEURO: moves all extremities equally Vital Signs: 17:14 BP 140 / 83; Pulse 103; Resp 18 S; Temp 98.6(O); Pulse Ox 96% on R/A; Weight 102.06 kg as6 (R); Height 5 ft. 1 in. (R); Pain 7/10; 18:09 BP 117 / 66; Pulse 84; Resp 18; Pulse Ox 96% on R/A; mb9 17:14 Body Mass Index 42.51 (102.06 kg, 154.94 cm) as6 17:14 Pain Scale: Adult as6 MDM: 17:20 Patient medically screened. ec2 17:20 Data reviewed: vital signs. ED course: Patient arrives today for evaluation of chest ec2 pain. Examination remarkable for well-appearing nontoxic dividual with slight tachycardia. Will obtain lab work, EKG, chest x-ray. Patient also noted to be anxious as well. . 17:22 HEART Score: History: Moderately Suspicious (1), ECG: Non specific repolarization ec2 disturbance / LBTB / PM (1), Age: > 45 and < 65 years (1), Risk Factors: > or = 3 Risk factors for atherosclerotic disease (2), Troponin: < or = 1 x Normal Limit (0). 17:33 ED course: EKG independently reviewed and interpreted by me, shows normal sinus rhythm, ec2 rate 95, no acute ST segment elevations, nonconcerning intervals. . 18:35 ED course: Metabolic profile is reassuring. CBC reassuring. Troponin within normal ec2 ranges. BNP within normal ranges. Chest x-ray shows no acute thoracic process. Ultimately my concern is that patient is having stable angina causing the patient's discomfort and additionally given patient's risk factors, feel should benefit from admission to the hospital for further cardiac evaluation. . 18:45 ED course: I recommended inpatient hospitalization to the patient however the patient ec2 declined states that she wants to follow-up outpatient with Dr. Gongora, cardiology. I instructed her given her exertional component I am concerned she has stable angina and this may progress and worsen. I instructed her if she changes her mind and would like to be admitted to the hospital she is always welcome to return.. 11/05 17:20 Order name: Basic Metabolic Panel; Complete Time: 18:34 ec2 11/05 17:20 Order name: CBC with Diff; Complete Time: 18:34 ec2 11/05 17:20 Order name: NT PRO-BNP; Complete Time: 18:34 ec2 11/05 17:20 Order name: PT-INR; Complete Time: 18:34 ec2 11/05 17:20 Order name: Troponin HS; Complete Time: 18:34 ec2 11/05 17:20 Order name: XRAY Chest (1 view); Complete Time: 18:34 ec2 11/05 17:20 Order name: Cardiac monitoring; Complete Time: 17:34 ec2 11/05 17:20 Order name: EKG - Nurse/Tech; Complete Time: 17:34 ec2 11/05 17:20 Order name: IV Saline Lock; Complete Time: 17:34 ec2 11/05 17:20 Order name: Labs collected and sent; Complete Time: 17:34 ec2 11/05 17:20 Order name: O2 Per Protocol; Complete Time: 17:34 ec2 11/05 17:20 Order name: O2 Sat Monitoring; Complete Time: 17:34 ec2 Administered Medications: 17:34 Drug: Aspirin PO Chewable Tablet 324 mg PO once; 81 mg tablets x 4 Route: PO; mb9 18:51 Follow up: Response: No adverse reaction mb9 Disposition Summary: 11/06/23 18:45 Discharge Ordered Condition: Stable ec2 Diagnosis - Chest pain, unspecified ec2 Followup: ec2 - With: Private Physician - When: - Reason: Re-evaluation by your physician Followup: ec2 - With: Jordin Gongora MD - When: - Reason: Recheck today's complaints Discharge Instructions: - Discharge Summary Sheet ec2 - Nonspecific Chest Pain, Adult, Wnxn-he-Lyzm ec2 Forms: - Family Work Release bd - Medication Reconciliation Form ec2 - Thank You Letter ec2 - Antibiotic Education ec2 - Prescription Opioid Use ec2 - Patient Portal Instructions ec2 - Leadership Thank You Letter ec2 Signatures: Dispatcher [employer] Johnathan Groves RN RN as6 Ibeth Dowling RN RN mb9 Mello Yepez MD MD ec2 Corrections: (The following items were deleted from the chart) 17:20 17:20 BASIC METABOLIC PANEL+C.LAB.BRZ ordered. EDKY EDMS 17:20 17:20 CBC+H.LAB.BRZ ordered. EDKY EDKY 17:20 17:20 PROBNP+C.LAB.BRZ ordered. EDKY EDMS 17:20 17:20 PROTIME (+INR)+COAG.LAB.BRZ ordered. EDKY EDMS 17:21 17:20 Troponin High Sensitivity+C.LAB.BRZ ordered. EDKY EDKY 17:21 17:21 Chest Single View+RAD.RAD.BRZ ordered. EDKY EDMS 18:45 18:35 ED course: Metabolic profile is reassuring. CBC reassuring. Troponin within ec2 normal ranges. BNP within normal ranges. Chest x-ray shows no acute thoracic process. Ultimately my concern is that patient is having stable angina causing the patient's discomfort and additionally given patient's risk factors, feel should benefit from admission to the hospital for further cardiac evaluation. Patient updated on the plan of care and is agreeable, discussed case with hospitalist, pending admission. . ec2
--- NOTE | 2023-11-06 18:46 | ER ---
Nurse's Notes [facility] Name: Lisa Valentino Age: 58 yrs Sex: Female : 1965 Arrival Date: 11/06/2023 Time: 17:08 Bed 18 Private MD: Diagnosis: Chest pain, unspecified Presentation: 11/05 17:16 Chief complaint: Patient states: chest pain that has been coming and going for the last as6 few days. Coronavirus screen: At this time, the client does not indicate any symptoms associated with coronavirus-19. Ebola Screen: No symptoms or risks identified at this time. Initial Sepsis Screen: Does the patient meet any 2 criteria? No. Patient's initial sepsis screen is negative. Does the patient have a suspected source of infection? No. Patient's initial sepsis screen is negative. Risk Assessment: Do you want to hurt yourself or someone else? Patient reports no desire to harm self or others. Onset of symptoms was November 04, 2023. 17:16 Acuity: [place] 2 as6 17:16 Method Of Arrival: Ambulatory as6 Historical: - Allergies: 17:15 Dilaudid; as6 17:15 egg; as6 17:15 Latex; as6 17:15 Mycin antibiotics; as6 - PMHx: 17:15 Myocardial infarction; Diabetes mellitus; Hypertensive disorder; as6 - PSHx: 17:15 Stented artery; Total abdominal hysterectomy; Cholecystectomy; as6 - Immunization history:: Adult Immunizations up to date. - Infectious Disease History:: Denies. - Social history:: Smoking status: Patient reports the use of cigarette tobacco products, smokes one pack cigarettes per day. Screenin:18 [facility] ED Fall Risk Assessment (Adult) History of falling in the last 3 months, mb9 including since admission No falls in past 3 months (0 pts) Confusion or Disorientation No (0 pts) Intoxicated or Sedated No (0 pts) Impaired Gait No (0 pts) Mobility Assist Device Used No (0 pt) Altered Elimination No (0 pt) Score/Fall Risk Level 0 - 2 = Low Risk Oriented to surroundings, Maintained a safe environment, Educated pt \T\ family on fall prevention, incl call for assistance when getting out of bed. Abuse screen: Denies threats or abuse. Nutritional screening: No deficits noted. Tuberculosis screening: No symptoms or risk factors identified. Assessment: 17:34 General: Appears in no apparent distress. Behavior is calm, cooperative. Pain: mb9 Complains of pain in chest Pain radiates to neck Pain currently is 7 out of 10 on a pain scale. Quality of pain is described as throbbing, Pain began 2-3 days ago. Neuro: [place] Agitation-Sedation Scale (RASS): 0 - Alert and Calm Level of Consciousness is awake, alert, obeys commands, Oriented to person, place, time, situation, Appropriate for age. Cardiovascular: Reports chest pain, shortness of breath, Heart tones S1 S2 present Patient's skin is warm and dry. Respiratory: Airway is patent Respiratory effort is even, unlabored, Respiratory pattern is regular, symmetrical, Breath sounds are clear bilaterally. GI: Abdomen is round non-distended, Bowel sounds present X 4 quads. Abd is soft and non tender X 4 quads. : No signs and/or symptoms were reported regarding the genitourinary system. EENT: No signs and/or symptoms were reported regarding the EENT system. Derm: Skin is pink, warm \T\ dry. Musculoskeletal: Range of motion: intact in all extremities. 18:37 Reassessment: No changes from previously documented assessment. Patient and/or family mb9 updated on plan of care and expected duration. Pain level reassessed. Patient is alert, oriented x 3, equal unlabored respirations, skin warm/dry/pink. Vital Signs: 17:14 BP 140 / 83; Pulse 103; Resp 18 S; Temp 98.6(O); Pulse Ox 96% on R/A; Weight 102.06 kg as6 (R); Height 5 ft. 1 in. (R); Pain 7/10; 18:09 BP 117 / 66; Pulse 84; Resp 18; Pulse Ox 96% on R/A; mb9 17:14 Body Mass Index 42.51 (102.06 kg, 154.94 cm) as6 17:14 Pain Scale: Adult as6 ED Course: 17:09 Patient arrived in ED. mg5 17:13 Mello Yepez MD is Attending Physician. ec2 17:15 Arm band placed on right wrist. as6 17:17 Triage completed. as6 17:18 Ibeth Dowling RN is Primary Nurse. mb9 17:18 Placed in gown. Bed in low position. Call light in reach. Side rails up X 1. Provided mb9 Education on: press call light if needing anything. Client placed on continuous cardiac and pulse oximetry monitoring. NIBP monitoring applied. monitoring tech on. 17:19 No provider procedures requiring assistance completed. mb9 17:34 Initial lab(s) drawn, by me, sent to lab. EKG done, by ED staff, reviewed by Mello Yepez MD. Inserted saline lock: 22 gauge in right antecubital area, using aseptic technique. Blood collected. 17:54 XRAY Chest (1 view) In Process Unspecified. EDMS 18:45 Jordin Gongora MD is Referral Physician. ec2 18:51 IV discontinued, intact, bleeding controlled, No redness/swelling at site. Pressure mb9 dressing applied. Administered Medications: 17:34 Drug: Aspirin PO Chewable Tablet 324 mg PO once; 81 mg tablets x 4 Route: PO; mb9 18:51 Follow up: Response: No adverse reaction mb9 Medication: 17:35 VIS not applicable for this client. mb9 Outcome: 18:45 Discharge ordered by . ec2 18:51 Discharged to home ambulatory, with family, mb9 18:51 Condition: stable 18:51 Discharge instructions given to patient, family, Instructed on discharge instructions, follow up and referral plans. Demonstrated understanding of instructions, follow-up care, 18:51 Patient left the ED. mb9 Signatures: Dispatcher [employer] [facility] Johnathan Alex RN RN as6 Ibeth Dowling RN RN mb9 Malika Emerson mg5 Mello Yepez MD MD ec2 Corrections: (The following items were deleted from the chart) 18:10 18:09 BP 176 / 6; Pulse 84bpm; Resp 18bpm; Pulse Ox 96% RA; mb9 mb9
[2023-11-07 00:22] VITALS: BP 117/66; TEMP 98.6; O2SAT 96
== END 2023-11-06 18:51 | disposition home or self-care (01) ==
LOC: ER 17:08
DX: R07.9 Chest pain, unspecified (principal); I10 Essential (primary) hypertension; I25.2 Old myocardial infarction; F17.210 Nicotine dependence, cigarettes, uncomplicated; Z88.3 Allergy status to other anti-infective agents; Z88.8 Allergy status to other drugs, medicaments and biological substances; Z91.012 Allergy to eggs; Z91.040 Latex allergy status
CPT/HCPCS: 36415; 71045; 80048; 83880; 84484; 85025; 85610; 93005; 99284

== ENCOUNTER 2024-10-08 22:13 | Observation (INO) | payer BC, OTHER ==
--- OUTSIDE RECORDS SUMMARY | 2024-10-08 22:16 | XMS REPORT | Continuity of Care Document ---
Author Name Unknown Address [address] [place] [address]. [address] [place] [address] [facility] [place] Address [address] [facility]. [address] [place] [address] Care Team Providers Care Buffing Wheel Former Automatic Name Role Phone BACILIOANNALISE Primary Care Physician UnavailHUSAM Youssef Attending Clinician Unavailable KAIA WILD Attending Clinician Unavailable Kaia Wild MD Attending Clinician [phone] LAURA ZHU Attending Clinician LAURA Arzate Attending Clinician MARY Keith Attending Clinician Unavailable MARY VILLARREAL Attending Clinician Unavailable Doctor Unassigned, [place] Attending Clinician U navailable LION Attending Clinician Unavailable LION Admitting Clinician Unavailable Payers Payer Name Policy Type Policy Number Effective Date Expirati on Date Source [facility] [id number] 2022 00:00:00 Problems Condition Name Condition Details Condition Category Status Onset Date Resolution Date Last Treatment Date Treating Clinician Comments Source Chronic depression Chronic depression Disease Active 07-25 00:00: 00 [facility] Essential hypertensi on Essential hypertensi on Disease Active 07-25 00:00: 00 [facility] Hyperlipid emia Hyperlipid emia Disease Active 07-25 00:00: 00 [facility] Neuropathy Neuropathy Disease Active - 00:00: 00 [facility] Obese Obese Disease Active 07-25 00:00: 00 [facility] Low back pain Low back pain Disease Active 1-03 00:00: 00 [facility] Allergies, Adverse Reactions, Alerts Allergy Name Allergy Type Status Severity Reaction(s) Onset Date Inactive Date Treating Clinician Comments Source AZITHROM YCIN (BULK) DRUG Active N/V 03-30 00:00: 00 [facility] LATEX DRUG INGREDI Active Unknown-Cmnt 03-30 00:00: 00 [facility] EGG DRUG INGREDI Active Unknown-Cmnt 03-30 00:00: 00 [facility] Azithrom ycin (Bulk) Propensi ty to adverse reaction s Active Nausea and/or Vomiting 03-30 00:00: 00 [facility] Egg Propensi ty to adverse reaction s Active Unknown - See comments 03-30 00:00: 00 [facility] Latex Propensi ty to adverse reaction s Active Unknown - See comments 03-30 00:00: 00 [facility] NO KNOWN ALLERGIE S Drug Class Active [facility] Social History Social Habit Start Date Stop Date Quantity Comments Source [facility] of tobacco use Cigarette Smoker [facility] Gender identity [facility] Alcohol intake 2023-05-16 00:00:00 2023-05-16 00:00:00 Ex-drinker (finding) [facility] History of Social function 2023-05-16 00:00:00 2023-05-16 00:00:00 [facility] Tobacco use and exposure 2023-03-30 00:00:00 2023-03-30 00:00:00 Smokeless tobacco non-user [facility] Sex Assigned At 1965 00:00:00 1965 00:00:00 [facility] Smoking Status Start Date Stop Date Source Tobacco smoking consumption unknown [facility] Smokes tobacco daily 2023-03-30 00:00:00 [facility] Medications Ordered Medication Name Filled Medication Name Start Date Stop Date Current Medication? Ordering Clinician Indication Dosage Frequency Signature (SIG) Comments Components Source Nitrofurant oin&Nit. Macrocryst 100 mg capsule 2022-07 0 00:00: 00 Yes [id number] 100mg Take 1 capsule by mouth in the morning and 1 capsule in the evening. [facility] ciprofloxac in HCl 500 mg tablet 04-02 00:00: 00 05-16 00:00 :00 No [id number] 500mg Take 1 tablet by mouth every 12 (twelve) hours. [facility] clopidogreL 75 mg tablet 03-30 09:35: 61 Yes 75mg Take 1 tablet by mouth in the morning. [facility] aspirin 81 mg Cap 03-30 09:35: 61 Yes Take by mouth. [facility] sertraline 200 mg Cap 03-30 09:35: 61 Yes Take by mouth. [facility] hydrOXYzine 25 mg tablet 03-30 09:35: 61 Yes 25mg Take 1 tablet by mouth every 6 (six) hours. [facility] tiZANidine 4 mg capsule 03-30 09:35: 61 Yes 4mg Take 1 capsule by mouth in the morning and 1 capsule at noon and 1 capsule in the evening. [facility] melatonin 10 mg Cap 03-30 09:35: 61 Yes Take by mouth. [facility] orphenadrin e 100 mg SR tablet 03-28 00:00: 00 Yes [facility] OZEMPIC 0.25 mg or 0.5 mg (2 mg/3 mL) PnIj 03-20 00:00: 00 Yes INJECT 0.5MG SUBCUTANEO USLY ONCE WEEKLY [facility] amLODIPine- benazepriL 5-40 mg per capsule 02-26 00:00: 00 Yes 1{capsu le} Take 1 capsule by mouth in the morning. [facility] gabapentin 600 mg tablet 02-11 00:00: 00 Yes 600mg Take 1 tablet by mouth in the morning and 1 tablet in the evening. [facility] acetaminoph en-codeine 300-60 mg tablet 01-31 00:00: 00 Yes 1{tbl} Take 1 tablet by mouth every 8 (eight) hours as needed. [facility] atorvastati n 80 mg tablet 01-28 00:00: 00 Yes 80mg Take 1 tablet by mouth in the morning. [facility] Vital Signs Vital Name Observation Time Observation Value Comments S ource Systolic blood pressure 2023-05-16 19:38:00 136 mm[Hg] [facility] Diastolic blood pressure 2023-05-16 19:38:00 81 mm[Hg] [facility] Heart rate 2023-05-16 19:38:00 92 /min [facility] Respiratory rate 2023-05-16 19:38:00 18 /min [facility] Body height 2023-05-16 19:38:00 154.9 cm [facility] Body weight 2023-05-16 19:38:00 101.606 kg [facility] BMI 2023-05-16 19:38:00 42.32 kg/m2 [facility] Systolic blood pressure 2023-03-30 14:20:00 100 mm[Hg] [facility] Diastolic blood pressure 2023-03-30 14:20:00 67 mm[Hg] [facility] Heart rate 2023-03-30 14:20:00 91 /min [facility] Body temperature 2023-03-30 14:20:00 36.72 Alexa [facility] Respiratory rate 2023-03-30 14:20:00 18 /min [facility] Body height 2023-03-30 14:20:00 154.9 cm [facility] Body weight 2023-03-30 14:20:00 101.56 kg [facility] BMI 2023-03-30 14:20:00 42.31 kg/m2 [facility] Procedures Procedure Date / Time Performed Performing Clinicia n Source POCT URINALYSIS W/O SPECIFIC GRAVITY 2023-05-16 00:00:00 Kaia Wild [facility] ASSIGNMENT OF BENEFITS 2023-03-30 14:03:32 Docto r Unassigned, [place] [facility] POCT URINALYSIS W/O SPECIFIC GRAVITY 2023-03-30 00:00:00 Laura Zhu [facility] Encounters Start Date/Time End Date/Time Encounter Type Admission Type Attending [facility] Care Facility Care Department Encounter ID Source 2023-05-16 14:30:00 2023-05-16 15:01:04 Outpatient R KAIA WILD [facility] [id number] [facility] 2023-05-16 14:30:00 2023-05-16 15:01:04 Office Visit Kaia Wild [facility] 1..840.114 [id number] [id number] [facility] 2023-04-20 14:00:00 2023-04-20 14:00:00 Outpatient R LAURA SINGH MARISOL [facility] [id number] [facility] 2023-04-19 00:00:00 2023-04-19 00:00:00 Telephone Oriana Singhsol [facility] 1..840.114 350.1.13.10 [id number] 134 [id number] [facility] 2023-04-18 10:00:00 2023-04-18 10:00:00 Outpatient R MARY VILLARREAL ELISHA [facility] [id number] [facility] 2023-04-05 00:00:00 2023-04-05 00:00:00 Letter (Out) [facility] 1..840.114 350.1.13.10 [id number] [id number] 134 [id number] [facility] 2023-04-04 10:00:00 2023-04-04 10:00:00 Outpatient MARY JURADO ELISHA [facility] [id number] [facility] 2023-04-02 00:00:00 2023-04-02 00:00:00 Case Management Oriana Singhsol [facility] [id number] [id number] [facility] 2023-04-02 00:00:00 2023-04-02 00:00:00 Telephone Israel azar [facility] [id number] [id number] [id number] [facility] 2023-03-30 09:00:00 2023-03-30 09:40:59 Outpatient R LAURA SINGH [facility] [id number] [facility] 2023-03-30 09:00:00 2023-03-30 09:40:59 Office Visit Israel azar Laura [facility] [id number] [id number] [id number] 134 [id number] [facility] 2023-03-30 00:00:00 2023-03-30 00:00:00 Orders Only Doctor Unassigned, [place] [facility] [id number] [id number] [id number] [facility] 2022-01-31 10:41:00 2022-01-31 10:41:00 Outpatient DAVONTE MIGUEL [facility] [id number]on [facility] Results Test Description Test Time Test Comments Results Result Co mments Source [facility]/O SPECIFIC [id number] 19:28:00* Test Item Value Reference Range Interpretation [...] = 3257) Negative Negative - Negati ve [facility] W/O SPECIFIC [id number] 14:24:00* Test Item Value Reference Range Interpretation [...] = 3257) negative Negative - Negati ve [facility] W/O SPECIFIC [id number] 14:24:00* Test Item Value Reference Range Interpretation [...] = 3257) negative Negative - Negati ve [facility] Notes Date/Time Note Provider Source 2023-04-02 14:48:10 Formatting of this n ote might be different from the original. Name and verified. Patient informed of lab results and new Rx sent to pharmacy. Patient verbalized understanding. Leticia Tena MA [facility] 2023-04-02 14:33:19 Formatting of this n ote might be different from the original. Patient is calling back in regards to her lab results. Dominique Burleson [facility]
--- NOTE | 2024-10-08 22:33 | RAD REPORT ---
EXAM: Chest Single View HISTORY: 59 years Female CHEST PAIN COMPARISON: 11/06/2023 FINDINGS: LUNGS/PLEURA: The lungs are clear. No pleural effusions or pneumothorax. No pulmonary edema. CARDIAC/MEDIASTINUM: The cardiac silhouette is within normal limits. UPPER ABDOMEN: No significant abnormality. BONES: No acute abnormality. LINES/TUBES/OTHER: N/A IMPRESSION: No evidence of acute cardiopulmonary disease. No significant change from prior.
[2024-10-08 22:58] LABS: Absolute Basophils 0.1 K/uL (0-0.5); Absolute Eosinophils 0.2 K/uL (0-0.5); Absolute Lymphocytes (CBC) 3.4 K/uL (0.7-4.9); Absolute Monocytes 0.9 K/uL (0.1-1.3); Absolute Neutrophil 4.5 K/uL (1.8-8.0); Eosinophils % 2.2 % (0-4.4); Hematocrit 41.2 % (36.0-45.0); Hemoglobin 13.9 g/dL (12.0-15.0); Lymphocytes % 37.4 % (15.3-44.8); MCH 28.8 pg (27.0-35.0); MCHC 33.7 g/dL (32.0-36.0); MCV 85.4 fL (80-100); MPV 7.9 fL (7.6-11.3); Monocytes % 9.9 % (3.3-12.3); Neutrophils % 49.5 % (41.7-73.7); Nucleated Red Blood Cells % 0.1 % (0-0); Platelets 301 thou/uL (152-406); RBC Red Blood Cell Count 4.83 M/uL (3.86-4.86)
[2024-10-08 23:05] LABS: PT Prothrombin Time 11.3 SECONDS (10-13.0); Protime INR 0.99
[2024-10-08 23:25] LABS: ALT/SGPT 29 U/L (13-56); AST/SGOT 13 U/L (15-37); Albumin 3.2 g/dL (3.4-5.0); Albumin/Globulin Ratio 0.8 (1.1-1.8); Alkaline Phosphatase 110 U/L (45-117); Anion Gap 8.8 mEq/L (5.0-15.0); BUN Blood Urea Nitrogen 16 mg/dL (7-18); Bicarbonate 27 mEq/L (21-32); Bilirubin Total 0.3 mg/dL (0.2-1.0); Globulin 4.1 g/dL (2.3-3.5); Glomerular Filtration Rate 85 ml/min (=/>90); Glucose Level 91 mg/dL (74-106); Magnesium 2.1 mg/dL (1.6-2.4); NT PRO-BNP 59 pg/mL (<125); Potassium 3.8 mEq/L (3.5-5.1); Protein, Total 7.3 g/dL (6.4-8.2); Sodium Level 137 mEq/L (136-145)
[2024-10-08 23:26] LABS: Bilirubin Direct < 0.2 mg/dL (0-0.2); Bilirubin Indirect, Calculated 0.1 mg/dL (0.2-0.8); Troponin High Sensitivity < 3.0 pg/mL (<58.9)
--- NOTE | 2024-10-08 23:55 | EDPHYS ---
Physician Documentation [facility] Name: Lisa Valentino Age: 59 yrs Sex: Female : 1965 Arrival Date: 10/08/2024 Time: 22:13 Bed 26 Private MD: ED Physician Cesar Ramos HPI: 10/09 00:18 This 59 yrs old Female presents to ER via EMS with complaints of Chest Pain. sb4 00:18 Patient reports intermittent left-sided chest pain that has been fluctuating all day. sb4 States it is worse with exertion, improves with rest. Denies any radiation of the pain. Reports associated shortness of breath. Has a history of 3 stents, is on Plavix daily. Last it was placed 2 years ago, has not had a cardiac catheterization or stress test since. Historical: - Allergies: 10/08 22:19 Dilaudid; jb4 22:19 egg; jb4 22:19 Latex; jb4 22:19 Mycin antibiotics; jb4 - PMHx: 22:19 diabetes mellitus; Hypertensive disorder; Myocardial infarction; high cholesterol jb4 (Total abdominal hysterectomy); - PSHx: 22:19 Stented artery; Cholecystectomy; Total abdominal hysterectomy; jb4 - Immunization history:: Adult Immunizations up to date. - Infectious Disease History:: Denies. - Social history:: Smoking status: Patient reports the use of cigarette tobacco products, smokes one pack cigarettes per day. ROS: 10/09 00:18 Constitutional: Negative for fever, chills, and weight loss, sb4 Cardiovascular: Positive for chest pain, All other systems are negative, Exam: 00:18 Constitutional: This is a well developed, well nourished patient who is awake, alert, sb4 and in no acute distress. Head/Face: Normocephalic, atraumatic. Eyes: Extra-ocular motions intact. Periorbital areas with no swelling, redness, or edema. ENT: Mucous membranes moist. Cardiovascular: Regular rate and rhythm with a normal S1 and S2. Respiratory: No increased work of breathing, no retractions or nasal flaring. Abdomen/GI: Soft, non-tender, no distension. Skin: Warm, dry with normal turgor. Normal color with no rashes, no lesions, and no evidence of cellulitis. Vital Signs: 10/08 22:16 BP 144 / 92; Pulse 78; Resp 16; Temp 98.6; Pulse Ox 96% on R/A; Weight 102.06 kg; jb4 Height 5 ft. 1 in. ; Pain 4/10; 23:28 BP 152 / 97; Pulse 80; Resp 18; Pulse Ox 97% on R/A; jb4 10/09 00:33 BP 150 / 73; Pulse 69; Resp 20; Pulse Ox 96% on R/A; jb4 01:30 BP 149 / 77; Pulse 67; Resp 18; Pulse Ox 97% on R/A; jb4 10/08 22:16 Body Mass Index 42.51 (102.06 kg, 154.94 cm) jb4 10/08 22:16 Pain Scale: Adult 4 MDM: 10/08 22:16 Medical Screening Exam initiated sb4 10/09 00:18 Data reviewed: vital signs, nurses notes, EMS record, lab test result(s), EKG, sb4 radiologic studies, and as a result, I will admit patient. Consideration of Admission/Observation Patient was admitted/placed on observation. Historians other than the Patient: Spouse/Significant Other: . Care significantly affected by the following chronic conditions: Diabetes, Hypertension. Scoring Tools HEART Score: History: ECG: Age: Risk Factors: > or = 3 Risk factors for atherosclerotic disease (2), Troponin: Total Score = 6. Counseling: I had a detailed discussion with the patient and/or guardian regarding the historical points, exam findings, and any diagnostic results supporting the discharge/admit diagnosis, the presence of at least one elevated blood pressure reading (>120/80) during this emergency department visit, lab results, radiology results, the need for further work-up and treatment in the hospital. 10/08 22:21 Order name: Basic Metabolic Panel; Complete Time: 23:27 sb4 10/08 22:21 Order name: CBC with Diff; Complete Time: 23:03 4 10/08 22:21 Order name: LFT's; Complete Time: 23:27 sb4 10/08 22:21 Order name: Magnesium; Complete Time: 23:27 sb4 10/08 22:21 Order name: NT PRO-BNP; Complete Time: 23:27 sb4 10/08 22:21 Order name: PT-INR; Complete Time: 23:05 sb4 10/08 22:21 Order name: Troponin HS; Complete Time: 23:27 sb4 10/09 00:40 Order name: Urinalysis w/ reflexes EDMS 10/09 00:43 Order name: Urinalysis w/ reflexes EDMS 10/09 00:43 Order name: CBC with Automated Diff EDMS 10/09 00:43 Order name: CBC with Automated Diff EDMS 10/09 00:43 Order name: Comprehensive Metabolic Panel EDMS 10/09 00:43 Order name: Comprehensive Metabolic Panel EDMS 10/09 00:44 Order name: Troponin High Sensitivity EDMS 10/09 00:44 Order name: Troponin High Sensitivity EDMS 10/09 00:44 Order name: Troponin High Sensitivity EDMS 10/09 00:44 Order name: Troponin High Sensitivity EDMS 10/08 22:21 Order name: XRAY Chest (1 view); Complete Time: 22:34 sb4 10/08 22:21 Order name: Cardiac monitoring; Complete Time: 22:54 sb4 10/08 22:21 Order name: EKG - Nurse/Tech; Complete Time: 22:54 sb4 10/08 22:21 Order name: IV Saline Lock; Complete Time: 22:54 sb4 10/08 22:21 Order name: Labs collected and sent; Complete Time: 22:54 sb4 10/08 22:21 Order name: O2 Per Protocol; Complete Time: 22:54 sb4 10/08 22:21 Order name: O2 Sat Monitoring; Complete Time: 22:54 sb4 10/09 01:02 Order name: Misc. Order: DRAW 0045 TROPONIN; Complete Time: 01:29 vc1 EC:30 Rate is 71 beats/min. Rhythm is regular, Normal Sinus Rhythm. NH interval is normal at sb4 168 msec. QRS interval is normal at 90 msec. QT interval is normal at 390 msec. No Q waves. T waves are Normal. No ST changes noted. Clinical impression: Normal ECG. Interpreted by me. Reviewed by me. Administered Medications: No medications were administered Disposition Summary: 10/08/24 23:54 Hospitalization Ordered Notes: Hospitalization Status: Observation sb4 Provider: Arun Hill Location: Telemetry/MedSurg (observation) sb4 Condition: Fair sb4 Problem: new sb4 Symptoms: are unchanged sb4 Bed/Room Type: Standard sb4 Room Assignment: 229(10/09/24 01:42) rv1 Diagnosis - Unstable angina sb4 Forms: - Medication Reconciliation Form sb4 - SBAR form sb4 - Leadership Thank You Letter sb4 Addendum: 10/10/2024 16:45 Co-signature as Attending Physician, Cesar Ramos MD I agree with the assessment s p4 and plan of care. I reviewed the patient's care provided by the Advanced Practice Provider and agree with the diagnosis and treatment plan. Signatures: Dispatcher [employer] EDMS Michael Sierra, RN RN jb4 Taylor Dyer RN RN vc1 Winifred Horne, PA-C PA-C sb4 NeerajArti rv1 Cesar Ramos MD MD sp4 Corrections: (The following items were deleted from the chart) 10/08 22:21 22:21 BASIC METABOLIC PANEL+C.LAB.BRZ ordered. EDMS EDMS 22:21 22:21 CBC+H.LAB.BRZ ordered. EDMS EDMS 22:21 22:21 HEPATIC FUNCTION+C.LAB.BRZ ordered. EDMS EDMS 22:21 22:21 MAGNESIUM+C.LAB.BRZ ordered. EDMS EDMS 22:21 22:21 PROBNP+C.LAB.BRZ ordered. EDMS EDMS 22:21 22:21 PROTIME (+INR)+COAG.LAB.BRZ ordered. EDMS EDMS 22:21 22:21 Troponin High Sensitivity+C.LAB.BRZ ordered. EDMS EDMS 22:21 22:21 Chest Single View+RAD.RAD.BRZ ordered. EDMS EDMS 10/09 00:46 10/08 23:54 sb4 rv1 10/09 01:42 00:46 223 rv1 rv1
--- NOTE | 2024-10-08 23:55 | ER ---
Nurse's Notes [facility] Name: Lisa Valentino Age: 59 yrs Sex: Female : 1965 Arrival Date: 10/08/2024 Time: 22:13 Bed 26 Private MD: Diagnosis: Unstable angina Presentation: 10/08 22:16 Chief complaint: EMS states: Pt reports chest pain that has been intermittent through jb4 out the day that started this morning. Pt took her home dose of T4, clonazapam, and robaxan 45minutes CROP SCOUT and we gave 324 of ASA. Coronavirus screen: At this time, the client does not indicate any symptoms associated with coronavirus-19. Ebola Screen: No symptoms or risks identified at this time. Initial Sepsis Screen: Does the patient meet any 2 criteria? No. Patient's initial sepsis screen is negative. Does the patient have a suspected source of infection? No. Patient's initial sepsis screen is negative. Risk Assessment: Do you want to hurt yourself or someone else? Patient reports no desire to harm self or others. Onset of symptoms was October 08, 2024. Transition of care: patient was not received from another setting of care. 22:16 Method Of Arrival: EMS: [facility] jb4 22:16 Acuity: [place] 2 jb4 Historical: - Allergies: 22:19 Dilaudid; jb4 22:19 egg; jb4 22:19 Latex; jb4 22:19 Mycin antibiotics; jb4 - PMHx: 22:19 diabetes mellitus; Hypertensive disorder; Myocardial infarction; high cholesterol jb4 (Total abdominal hysterectomy); - PSHx: 22:19 Stented artery; Cholecystectomy; Total abdominal hysterectomy; jb4 - Immunization history:: Adult Immunizations up to date. - Infectious Disease History:: Denies. - Social history:: Smoking status: Patient reports the use of cigarette tobacco products, smokes one pack cigarettes per day. Screenin:55 [facility] ED Fall Risk Assessment (Adult) History of falling in the last 3 months, jb4 including since admission No falls in past 3 months (0 pts) Confusion or Disorientation No (0 pts) Intoxicated or Sedated No (0 pts) Impaired Gait No (0 pts) Mobility Assist Device Used No (0 pt) Altered Elimination No (0 pt) Score/Fall Risk Level 0 - 2 = Low Risk Oriented to surroundings, Maintained a safe environment. Abuse screen: Denies threats or abuse. Nutritional screening: No deficits noted. Tuberculosis screening: No symptoms or risk factors identified. Assessment: 22:20 General: Appears in no apparent distress. comfortable, Behavior is calm, cooperative, jb4 appropriate for age. Pain: Complains of pain in chest Pain does not radiate. Pain currently is 4 out of 10 on a pain scale. Neuro: Level of Consciousness is awake, alert, obeys commands, Oriented to person, place, time, situation. Cardiovascular: Patient's skin is warm and dry. Respiratory: Airway is patent Respiratory effort is even, unlabored, Respiratory pattern is regular, symmetrical. Derm: Skin is intact, Skin is pink, warm \T\ dry. 22:20 Musculoskeletal: Circulation, motion, and sensation intact. Range of motion: intact in jb4 all extremities. 23:28 Reassessment: Patient appears in no apparent distress at this time. Patient and/or jb4 family updated on plan of care and expected duration. Pain level reassessed. Patient is alert, oriented x 3, equal unlabored respirations, skin warm/dry/pink. 10/09 00:33 Reassessment: Patient appears in no apparent distress at this time. Patient and/or jb4 family updated on plan of care and expected duration. Pain level reassessed. Patient is alert, oriented x 3, equal unlabored respirations, skin warm/dry/pink. 01:35 Reassessment: Patient appears in no apparent distress at this time. Patient and/or jb4 family updated on plan of care and expected duration. Pain level reassessed. Patient is alert, oriented x 3, equal unlabored respirations, skin warm/dry/pink. Vital Signs: 10/08 22:16 BP 144 / 92; Pulse 78; Resp 16; Temp 98.6; Pulse Ox 96% on R/A; Weight 102.06 kg; jb4 Height 5 ft. 1 in. ; Pain 10/30; 23:28 BP 152 / 97; Pulse 80; Resp 18; Pulse Ox 97% on R/A; jb4 10/09 00:33 BP 150 / 73; Pulse 69; Resp 20; Pulse Ox 96% on R/A; jb4 01:30 BP 149 / 77; Pulse 67; Resp 18; Pulse Ox 97% on R/A; jb4 10/08 22:16 Body Mass Index 42.51 (102.06 kg, 154.94 cm) jb4 10/08 22:16 Pain Scale: Adult jb4 ED Course: 10/08 22:15 Patient arrived in ED. rv1 22:16 Winiferd Horne PA-C is PHCP. sb4 22:16 Cesar Ramos MD is Attending Physician. sb4 22:16 Michael Sierra, RN is Primary Nurse. jb4 22:19 Triage completed. jb4 22:19 Arm band placed on right wrist. jb4 22:30 XRAY Chest (1 view) In Process Unspecified. EDMS 22:54 Basic Metabolic Panel Sent. jb4 22:54 CBC with Diff Sent. jb4 22:54 LFT's Sent. jb4 22:54 Magnesium Sent. jb4 22:54 NT PRO-BNP Sent. jb4 22:54 PT-INR Sent. jb4 22:54 Troponin HS Sent. jb4 22:55 Patient has correct armband on for positive identification. Bed in low position. Call jb4 light in reach. Side rails up X 1. Provided Education on: plan of care. 22:55 No provider procedures requiring assistance completed. jb4 23:54 Arun Hill MD is Hospitalizing Provider. sb4 10/09 03:01 Patient admitted, IV remains in place. jb4 Administered Medications: No medications were administered Medication: 10/08 22:55 VIS not applicable for this client. jb4 Outcome: 23:54 Decision to Hospitalize by Provider. sb4 10/09 03:01 Admitted to Med/surg accompanied by tech, via wheelchair, room 229, with chart, jb4 Condition: stable Discharge instructions given to patient, family, Instructed on the need for admit, Demonstrated understanding of instructions, 03:02 Patient left the ED. jb4 Signatures: Dispatcher [employer] EDMS Michael Sierra, RN RN jb4 Winifred Horne PA-C PA-C sb4 Arti Pickard rv1 Corrections: (The following items were deleted from the chart) 10/08 22:55 22:00 General: Appears in no apparent distress. comfortable, Behavior is calm, jb4 cooperative, appropriate for age, jb4 22:55 22:00 Pain: Complains of pain in chest Pain does not radiate. Pain currently is 4 out jb4 of 10 on a pain scale. jb4 22:55 22:00 Neuro: Level of Consciousness is awake, alert, obeys commands, Oriented to jb4 person, place, time, situation, jb4 22:55 22:00 Cardiovascular: Patient's skin is warm and dry. jb4 jb4 22:55 22:00 Respiratory: Airway is patent Respiratory effort is even, unlabored, Respiratory jb4 pattern is regular, symmetrical, jb4 22: 22:00 Derm: Skin is intact, Skin is pink, warm \T\ dry. jb4 jb4 22:55 22:00 Musculoskeletal: Circulation, motion, and sensation intact. Range of motion: jb4 intact in all extremities, jb4
[2024-10-09] MEDS ORDERED: ONDANSETRON 4 MG/2 ML VIAL IV PRN (00:38)
[2024-10-09] MEDS ORDERED: ACETAMINOPHEN 325 MG TABLET PO PRN (00:38)
[2024-10-09] MEDS ORDERED: hydrOXYzine HCL 25 MG TAB PO PRN (00:42)
[2024-10-09] MEDS ORDERED: HOME MED 1 EA UNK (Tizanidine Hcl [Tizanidine Hcl] 4 MG Capsule) PO PRN (00:42)
[2024-10-09] MEDS ORDERED: clonazePAM 1 MG TAB PO PRN (00:47)
--- NOTE | 2024-10-09 00:48 | P.HP ---
Certification for Inpatient Patient admitted to: Observation With expected LOS: <2 Midnights Practitioner: I am a practitioner with admitting privileges, knowledge of patient current condition, hospital course, and medical plan of care. Services: Services provided to patient in accordance with Admission requirements found in Title 42 Section 412.3 of the Code of Federal Regulations Patient History Date of Service: 10/09/24 Reason for admission: Unstable Angina History of Present Illness: 59-year-old female with past medical history of diabetes, hypertension, hyperlipidemia, obesity, nicotine dependence, anxiety, major depressive disorder who was brought to ER with chest pain. Pain was located substernally squeezing type, nonradiating. Associated with palpitation. No fever or chills. No shortness of breath. Pain slightly better when resting. At the time of interview is 3 out of 10 in severity. No nausea vomiting or diarrhea. No sick contacts. Patient was assessed in the ER and is admitted for further management of chest pain rule out ACS Allergies egg Allergy (Verified 01/26/14 20:34) unknown latex Allergy (Verified 01/26/14 20:34) unknown eggs Allergy (Uncoded 10/28/14 13:27) Unknown Erythromycin Allergy (Uncoded 05/28/15 16:56) Unknown mycins antibiotics Allergy (Uncoded 12/07/13 03:17) Unknown Home medications list reviewed: Yes Home Medications: Atorvastatin Calcium [Lipitor] 40 mg PO DAILY 01/26/14 Sertraline [Zoloft*] 200 mg PO DAILY 01/26/14 clonazePAM [Klonopin*] 2 mg PO DAILY PRN 01/26/14 hydrOXYzine HCL [Atarax*] 1 tab PO DAILY PRN 01/26/14 Acetaminophen with Codeine [Acetaminophen-Cod #4 Tablet] 1 each PO Q8HR PRN 06/14/22 Amlodipine Besylate/Benazepril [Amlodipine-Benazepril 5-40 mg] 1 cap PO DAILY 06/14/22 Atorvastatin Calcium [Lipitor] 80 mg PO DAILY 90 Days #90 tab 06/14/22 Carvedilol [Coreg] 3.125 mg PO DAILY 06/14/22 Gabapentin 600 mg PO BID 06/14/22 Melatonin 10 mg PO DAILY 06/14/22 Naloxegol Oxalate [Movantik] 25 mg PO DAILY 06/14/22 Ozempic 0.5 mg SQ EVERY 7TH DAY 06/14/22 Ticagrelor [Brilinta*] 90 mg PO BID 90 Days #180 tab 06/14/22 Tizanidine HCl 4 mg PO PRN PRN 06/14/22 - Past Medical/Surgical History Diabetic: No Past Medical History: Reviewed- Non-Contributory -: PE in 2011 -: sleep apnea -: htn -: depression -: anxiety -: ptsd -: high cholesterol -: arthritis -: "patches on lungs" Past Surgical History: Reviewed- Non-Contributory -: tonsilectomy -: both ankles -: hysterectomy -: bladder lift -: kala november 2012 -: tubal ligation 1988 - Family History Family History: Reviewed- Non-Contributory - Social History Smoking Status: Current some day smoker Alcohol use: Yes CD- Drugs: No Caffeine use: Yes Review of Systems 10-point ROS is otherwise unremarkable Physical Examination - Vital Signs Temperature: 97.6 F Blood Pressure: 132/80 Pulse: 78 Respirations: 18 Pulse Ox (%): 94 - Physical Exam General: Alert, Oriented x3, Cooperative, Obese HEENT: Atraumatic, Normocephalic Neck: Supple, No LAD Respiratory: Clear to auscultation bilaterally, Normal air movement Cardiovascular: Regular rate/rhythm, Normal S1 S2 Capillary refill: <2 Seconds Gastrointestinal: Soft and benign, W/out hepatosplenomegaly Musculoskeletal: No clubbing, No swelling Integumentary: No rashes Neurological: Normal speech, Normal strength at 5/5 x4 extr, Cranial nerves 3-12 intact Lymphatics: No axilla or inguinal lymphadenopathy - Studies Laboratory Data (last 24 hrs) 10/08/24 10/08/24 10/08/24 22:39 22:39 22:39 WBC 9.00 Hgb 13.9 Hct 41.2 Plt Count 301 PT 11.3 INR 0.99 Sodium 137 Potassium 3.8 BUN 16 Creatinine 0.81 Glucose 91 Magnesium 2.1 Total Bilirubin 0.3 AST 13 L ALT 29 Alkaline Phosphatase 110 Assessment and Plan - Plan Unstable angina Will trend cardiac enzymes Will monitor telemetry Started on aspirin and statin EKG did not show any acute changes suggestive of ischemia Will get an echocardiogram Cardiology consult Hypertension Antihypertensives titrated Continue home medications and titrate as needed Hyperlipidemia Continue statin Diabetes Insulin sliding scale Accu-Chek before every meal and at bedtime Anxiety Started on Xanax as needed Monitor closely Major depressive disorder Continue home medications and titrate as needed Smoking Advised cessation Offered measures GI/DVT prophylaxis Advanced directive full code Discharge Plan: Home Plan to discharge in: 48 Hours - Advance Directives Does patient have a Living Will: No Does patient have a Durable POA for Healthcare: No - Code Status/Comfort Care Code Status: Full Code Time Spent Managing Pts Care (In Minutes): 54
[2024-10-09] MEDS ORDERED: HOME MED 1 EA UNK (Acetaminophen With Codeine [Acetaminophen-Cod #4 Tablet] Tablet) PO PRN (02:49)
[2024-10-09] MEDS ORDERED: ALPRAZOLAM 0.5 MG TABLET PO PRN (02:50)
[2024-10-09] MEDS ORDERED: D10W 125 ML IV PRN (03:00)
[2024-10-09] MEDS ORDERED: GLUCAGON 1 MG/VIAL IM PRN (03:00)
[2024-10-09] MEDS ORDERED: HYDROCODONE/APAP 5/325 MG TAB PO PRN (03:01)
[2024-10-09] MEDS ORDERED: MORPHINE 2 MG/ML SYR IV PRN (03:01)
[2024-10-09 03:55] VITALS: BMI 42.5
[2024-10-09 05:41] LABS: Phosphorus 3.8 mg/dL (2.5-4.9)
[2024-10-09] MEDS: INSULIN REGULAR (HUMAN) 100 UNIT/ML SQ SCH (07:30)
[2024-10-09 07:40] LABS: Specific Gravity 1.027 (1.005-1.030); Sqamous Epithelial <5 /HPF (None Seen); Urine Bacteria Loaded /HPF (<20); Urine Bilirubin NEGATIVE (Negative); Urine Blood Negative (Negative); Urine Clarity Extremely Turbid (Clear); Urine Color Yellow (Yellow); Urine Culture Reflex Order NOT NEEDED; Urine Glucose NEGATIVE (Negative); Urine Ketones NEGATIVE (Negative); Urine Microscopic Reflex YN ORDER UMIC; Urine Mucus 2+ /HPF (None Seen); Urine Nitrite 2+ (Negative); Urine Protein TRACE (Negative); Urine RBC <5 /HPF (None Seen); Urine Urobilinogen Normal (Normal); Urine WBC <5 /HPF (<5); Urine pH 5.5 (5.0-7.0)
[2024-10-09] MEDS: BENAZEPRIL 20 MG TAB PO SCH (08:33)
[2024-10-09] MEDS: ATORVASTATIN 40 MG TAB PO SCH (08:33)
[2024-10-09] MEDS: carvediloL 3.125 MG TAB PO SCH (08:34)
[2024-10-09] MEDS: SERTRALINE HCL 100 MG TAB PO SCH (08:34)
[2024-10-09] MEDS: GABAPENTIN 300 MG CAP PO SCH (08:35)
[2024-10-09] MEDS: AMLODIPINE 5 MG TAB PO SCH (08:35)
[2024-10-09] MEDS: MELATONIN 5 MG TABLET PO SCH (08:36)
[2024-10-09] MEDS: TICAGRELOR 90 MG TABLET PO SCH (08:36)
[2024-10-09] MEDS: ENOXAPARIN 40 MG/0.4 ML SQ SCH (08:36)
[2024-10-09 09:23] VITALS: O2SAT 97
--- NOTE | 2024-10-09 11:11 | P.CNS ---
Date of Consult: 10/09/24 Chief Complaint: Unstable Angina History of Present Illness: Patient with PMH of CAD. PCI LAD ISR back in 06/2023 presented with chest pain that started yesterday, lasted for few minutes, denies any other cardiac symptoms, chest pain is resolved now, no palpitations, no syncope, no breathing problems Allergies egg Allergy (Verified 01/26/14 20:34) unknown latex Allergy (Verified 01/26/14 20:34) unknown eggs Allergy (Uncoded 10/28/14 13:27) Unknown Erythromycin Allergy (Uncoded 05/28/15 16:56) Unknown mycins antibiotics Allergy (Uncoded 12/07/13 03:17) Unknown Home medications list reviewed: Yes Home Medications: Atorvastatin Calcium [Lipitor] 40 mg PO DAILY 01/26/14 Sertraline [Zoloft*] 200 mg PO DAILY 01/26/14 clonazePAM [Klonopin*] 2 mg PO DAILY PRN 01/26/14 hydrOXYzine HCL [Atarax*] 1 tab PO DAILY PRN 01/26/14 Acetaminophen with Codeine [Acetaminophen-Cod #4 Tablet] 1 each PO Q8HR PRN 06/14/22 Amlodipine Besylate/Benazepril [Amlodipine-Benazepril 5-40 mg] 1 cap PO DAILY 06/14/22 Atorvastatin Calcium [Lipitor] 80 mg PO DAILY 90 Days #90 tab 06/14/22 Carvedilol [Coreg] 3.125 mg PO DAILY 06/14/22 Gabapentin 600 mg PO BID 06/14/22 Melatonin 10 mg PO DAILY 06/14/22 Naloxegol Oxalate [Movantik] 25 mg PO DAILY 06/14/22 Ozempic 0.5 mg SQ EVERY 7TH DAY 06/14/22 Ticagrelor [Brilinta*] 90 mg PO BID 90 Days #180 tab 06/14/22 Tizanidine HCl 4 mg PO PRN PRN 06/14/22 - Past Medical/Surgical History Diabetic: No -: PE in 2011 -: sleep apnea -: htn -: depression -: anxiety -: ptsd -: high cholesterol -: arthritis -: "patches on lungs" -: tonsilectomy -: both ankles -: hysterectomy -: bladder lift -: kala november 2012 -: tubal ligation 1988 - Social History Smoking Status: Current every day smoker Alcohol use: Yes CD- Drugs: No Caffeine use: Yes Place of Residence: Home Review of Systems 10-point ROS is otherwise unremarkable Physical Examination Temp Pulse Resp BP Pulse Ox 98.3 F 71 14 125/60 93 10/09/24 08:00 10/09/24 08:35 10/09/24 08:00 10/09/24 08:35 10/09/24 08:00 General: Alert, In no apparent distress HEENT: Atraumatic, PERRLA, Mucous membr. moist/pink, EOMI, Sclerae nonicteric Neck: Supple, 2+ carotid pulse no bruit, No LAD, Without JVD or thyroid abnormality Respiratory: Clear to auscultation bilaterally, Normal air movement Cardiovascular: Regular rate/rhythm, Normal S1 S2 Gastrointestinal: Normal bowel sounds, No tenderness Musculoskeletal: No tenderness Integumentary: No rashes Neurological: Normal gait, Normal speech, Normal tone, Normal affect Lymphatics: No axilla or inguinal lymphadenopathy Laboratory Data (last 24 hrs) 10/08/24 10/08/24 10/08/24 22:39 22:39 22:39 WBC 9.00 Hgb 13.9 Hct 41.2 Plt Count 301 PT 11.3 INR 0.99 Sodium 137 Potassium 3.8 BUN 16 Creatinine 0.81 Glucose 91 Magnesium 2.1 Total Bilirubin 0.3 AST 13 L ALT 29 Alkaline Phosphatase 110 - Problems (1) Chest pain Current Visit: Yes Status: Acute Plan: advised patient that she will need a stress test but she wants to go home so advised her to follow up with cardiology as outpatient to get it done. enzymes are negative and EKG is non specific continue ASA 81 mg daily continue Plavix 75 mg daily PRN NTG Continue Coreg. (2) HTN (hypertension) Current Visit: No Status: Acute Plan: continue coreg and benzapril Qualifiers: Hypertension type: primary hypertension Qualified Code(s): I10 - Essential (primary) hypertension
[2024-10-09 12:10] VITALS: BP 141/79; TEMP 97.6
--- NOTE | 2024-10-09 14:26 | ECHO ---
HEIGHT: 5 ft 1 in WEIGHT: 224 lb 13.944 oz DATE OF STUDY: 10/09/[address]: Mike Hill DO 2-DIMENSIONAL: YES M.MODE: YES DOPPLER: YES COLOR FLOW: YES TDS: PORTABLE: YES DEFINITY: BUBBLE STUDY: DIAGNOSIS: CHEST PAIN CARDIAC HISTORY: CATHERIZATION: YES SURGERY: NO PROSTHETIC VALVE: NO PACEMAKER: NO MEASUREMENTS (cm) DIASTOLIC (NORMALS) SYSTOLIC (NORMALS) IVSd 1.2 (0.6-1.2) LA Diam 2.7 (1.9-4.0) LVEF 55-60% LVIDd 4.2 (3.5-5.7) LVIDs 3.0 (2.0-3.5) %FS 29% LVPWd 1.2 (0.6-1.2) Ao Diam 2.6 (2.0-3.7) 2 DIMENSIONAL ASSESSMENT: RIGHT ATRIUM: NORMAL LEFT ATRIUM: NORMAL RIGHT VENTRICLE: NORMAL LEFT VENTRICLE: NORMAL TRICUSPID VALVE: NORMAL MITRAL VALVE: NORMAL PULMONIC VALVE: NORMAL AORTIC VALVE: NORMAL PERICARDIAL EFFUSION: NONE AORTIC ROOT: NORMAL LEFT VENTRICULAR WALL MOTION: NORMAL DOPPLER/COLOR FLOW: NORMAL COMMENTS: 1. NORMAL LEFT VENTRICULAR SYSTOLIC FUNCTION, EJECTION FRACTION 55-60%, NORMAL WALL MOTION 2. NORMAL DIASTOLIC DYSFUNCTION TECHNOLOGIST: CANDICE BURRELL
--- NOTE | 2024-10-13 12:15 | EKG ---
Test Date: 2024-10-08 Test Time: 22:22:40 Center Administrator: ABRIL MEASUREMENT RESULTS: Intervals: Rate: 71 OR: 168 QRSD: 90 QT: 390 QTc: 423 [place]: P: 29 OR: 168 QRS: 61 T: 39 INTERPRETIVE STATEMENTS: Normal sinus rhythm Normal ECG Compared to ECG 11/06/2023 17:25:52 Myocardial infarct finding no longer present Electronically Signed On 10-13-24 12:05:44 CDT by Christiano Dennison
== END 2024-10-09 12:19 | disposition home or self-care (01) ==
LOC: ER 22:13 → 2ND 10-09 00:36
PROVIDERS: ADMIT Family Medicine; ATTEND Internal Medicine
DX: I20.0 Unstable angina (principal); E11.9 Type 2 diabetes mellitus without complications; I10 Essential (primary) hypertension; E78.5 Hyperlipidemia, unspecified; E66.9 Obesity, unspecified; F41.9 Anxiety disorder, unspecified; F32.A Depression, unspecified; Z88.3 Allergy status to other anti-infective agents; Z88.1 Allergy status to other antibiotic agents; Z91.012 Allergy to eggs; Z91.040 Latex allergy status; F17.210 Nicotine dependence, cigarettes, uncomplicated; I25.10 Atherosclerotic heart disease of native coronary artery without angina pectoris
CPT/HCPCS: 93005; 93306; 85025; 81001; 80048 ×2; 36415; 83735; 84100; 85610; 82947 ×2; 80076; 84484 ×4; 83880; 71045; 99285; J1650; G0378 ×2